=== PATIENT | male | born 1965 | race Caucasian/White ===

== ENCOUNTER 2017-01-17 14:14 | Inpatient (IN) | payer MEDICARE, OTHER ==
[~2017-01-17] VITALS: Ht 172.7 cm; Wt 120.7 kg
[2017-01-17] MEDS ORDERED: Ondansetron 2 mg/mL 2 mL Inj IVPUSH PRN (18:00)
[2017-01-17] MEDS ORDERED: Alum-Mag Hydrox-Simeth 30 mL Suspension PO PRN (18:00)
[2017-01-17] MEDS ORDERED: Lactulose 20 Gm/30 mL 30 mL Syrup PO ONE (18:00)
[2017-01-17 18:15] VITALS: BP 142/89; PULSE 89; RESP 22; O2SAT 97
[2017-01-17] MEDS ORDERED: Vancomycin Dose per Pharmacist XX SCH (18:15)
--- NOTE | 2017-01-17 18:24 | PCM.HPMED ---
Subjective Date of Service January 17, 2017 Primary Provider: Admitting Physician: Leroy Camara MD Primary Care Physician: Nopc[place] Attending Physician: Leroy Camara MD Admit Status: From the Emergency Department, Full Admit, Admit to Red Team Chief Complaint: Transferred from the [facility] for staph bacteremia for possible CAIN History of Present Illness: 51-year-old gentleman with no significant past medical history presented to [facility] on 01/15 due to very high-grade fever, chills and right flank pain. Patient states he started to have intermittent very high-grade fever, temp 104 , on Tuesday. He had low-grade fever on Tuesday. Fever is accompanied by chills. He also has persistent right upper flank pain which also started on Tuesday. He was seen by his PCP on Tuesday afternoon and blood cultures collected. No antibiotics prescribed. He went ED on Tuesday due to worsening symptoms. Blood culture collected at PCPs office growing staph aureus and patient hospitalized. Repeat blood cultures collected in the emergency room also growing staph. Patient was started on Zosyn and vancomycin. Denies urinary complaints. Complains of constipation . Complains of RUQ abdominal pain which started today. He had surgery on bone spur right toe in November. 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 [facility] course: Patient continues to have high-grade fevers temp 104. Continues to have right flank pain and tenderness Initial WBC 4.7, initial lactic acid 1.3, BMP unremarkable, urinalysis 6-10rbcs , influenza A and B-, infectious mononucleosis negative Blood cultures growing Staphylococcus aureus x4 ESr 18, CT scan of abdomen minimal fat stranding at root of mesentery which could represent mesenteric panniculitis. TTE EF 70% no obvious vegetations CXr increased bibasilar consolidation, mildly pneumonia Abdominal ultrasound: Borderline splenomegaly, hypoechoic lesion on left lobe suggestive of hemangioma, no chronic testes, normal kidneys XRfoot mild cortical irregularity, consistent with possible osteomyelitis. There is also some soft tissue swelling of the lateral foot. MRI lumbar spine some marrow edema within the left L5 greater than L4 pedicles. Some degenerative edema versus stress reaction. No finding to suggest a discitis or osteomyelitis ID Dr Haines was contacted by [facility] and patient transferred for more workup and possible CAIN Review of Systems: A comprehensive review of systems performed, pertinent positives and negatives included in history of present illness Allergies Coded Allergies: No Known Allergies (Unverified Allergy, 08/17/13) Home Medications lunesta 2mg prn PMH History of asystole following spinal anesthesia PTSD Surgical History Extensive surgery on right foot following injury while serving in [place]. Hardware in place Reconstructive surgery on face following injury Family History Reviewed and unremarkable Mother has history of lung cancer, hypertension, heart disease Lives with his bernarda who is belt cleaner at [employer] Social History Hx Alcohol Use: No Hx Substance Use: No Hx Tobacco Use: No Smoking Status: Former Smoker Exam Exam Gen. patient is lying comfortably in hospital bed HEENT: Head is normocephalic atraumatic, Pupils equal and reactive, extraocular movements intact, Lungs clear to auscultation bilaterally Heart regular rate and rhythm without murmurs gallops or rubs Abdomen soft nontender without hepatosplenomegaly Extremities pulses are present dorsalis pedis posterior tibialis and radial. tSkin is warm and dry there are no rashes, Psych alert and oriented to person place and time Neuro cranial nerves II through XII are grossly intact Lymph: There is no lymphadenopathy appreciated in the cervical supra infraclavicular regions : no [facility] X-Rays, CTs and MRIs Initial WBC 4.7, initial lactic acid 1.3, BMP unremarkable, urinalysis 6-10rbcs , influenza A and B-, infectious mononucleosis negative Blood cultures growing Staphylococcus aureus x4 ESr 18, CT scan of abdomen minimal fat stranding at root of mesentery which could represent mesenteric panniculitis. TTE EF 70% no obvious vegetations CXr increased bibasilar consolidation, mildly pneumonia Abdominal ultrasound: Borderline splenomegaly, hypoechoic lesion on left lobe suggestive of hemangioma, no chronic testes, normal kidneys XRfoot mild cortical irregularity, consistent with possible osteomyelitis. There is also some soft tissue swelling of the lateral foot. MRI lumbar spine some marrow edema within the left L5 greater than L4 pedicles. Some degenerative edema versus stress reaction. No finding to suggest a discitis or osteomyelitis Assessment & Plan 51-year-old gentleman with no significant past medical history presented to [facility] on 01/15 due to very high-grade fever, chills and right flank pain. # Staphylococcus bacteremia of unclear source,acute,poa -We will send a new set of blood cultures.12/14 positive at [facility] -Continue Zosyn and vancomycin awaiting sensitivity from [facility] -Nothing by mouth past midnight for possible CAIN -Mention of possible cellulitis and osteomyelitis on x-ray of foot but clinically no evidence so far . No tenderness at all -Severe pain and tenderness on right flank but negative on imaging -May need wbc scan if CAIN is negative -ID Dr Haines notified # Severe right flank pain -Unclear etiology, imaging revealing -Dilaudid when necessary # Constipation -bowel regimen Full code ,names his as Bernarda ALDRIDGE [phone] Patient admitted under inpatient status with expected length of stay > 2 midnights for severity of present symptoms, complexities of treatment plan and risk for adverse events Time spent 60 minutes copies to: oMmo Hernandez MD, Melaku MD January 17, 2017 18:24
[2017-01-17 18:56] LABS: BASOPHILS % (AUTO) 0.4 % (0-3); EOSINOPHILS % (AUTO) 1.2 % (0-5); MONOCYTES % (AUTO) 7.5 % (4-12); Mean Corpuscular Hemoglobin 29.1 pg (27.0-35.0); Mean Corpuscular Volume 88.6 fL (81-100); NEUTROPHILS % (AUTO) 79.4 % (40-74); Platelet Count 152 bil/L (150-400)
[2017-01-17] MEDS: 0.9% Sodium Chloride 1,000 ML IV SCH (19:26)
--- NOTE | 2017-01-17 19:36 | NUR ---
Admit to [facility] Pt. arrived on unit via BLS at 1755. He appeared diaphoretic, SOB and weak. Pt. moved to hospital bed from [facility] and MD present in the room at 1805. Vitals stable except for temp of 39.1. Pt. states he does not feel SOB, but is breathing hard due to abdominal discomfort associated with constipation. MD aware and lactulose and tylenol ordered and given. Lab present to draw labs. Pt. looked better after 30 minutes of resting in bed. He says he feels better than he did when he first arrived to the unit. Oriented to call light and falls policy. Night RN to finish admit questions.
[2017-01-17] MEDS ORDERED: Vancomycin Inj 1,750 MG in 0.9% Sodium Chloride 500 ML IV SCH (20:00)
--- NOTE | 2017-01-17 20:20 | PCM.CONPHA ---
Subjective Date of Service: January 17, 2017 Transferred from the [facility] for staph bacteremia for possible CAIN Reason for Pharmacy Consult: Vancomycin Dosing Objective Vital Signs Date Time Temp Pulse Resp B/P Pulse Ox O2 Delivery O2 Flow Rate FiO2 01/17/17 18:15 39.1 89 22 142/89 97 Room Air Weight (Kilograms): 120.700 Height (Feet): 5 Height (Inches): 8.00 Test 01/17/17 18:45 White Blood Count 6.8th/mm3 (3.8-10.1) Red Blood Count 4.37mil/mm3 (4.40-5.80) Hemoglobin 12.7g/dL (13.8-17.2) Hematocrit 38.7% (41.0-50.0) Mean Corpuscular Volume 88.6fL (81-100) Mean Corpuscular Hemoglobin 29.1pg (27.0-35.0) Mean Corpuscular Hemoglobin Concent 32.8% (32.0-37.0) Red Cell Distribution Width 13.5% (12.3-15.4) Platelet Count 152bil/L (150-400) Neutrophils (%) (Auto) 79.4% (40-74) Lymphocytes (%) (Auto) 10.9% (14-46) Monocytes (%) (Auto) 7.5% (4-12) Eosinophils (%) (Auto) 1.2% (0-5) Basophils (%) (Auto) 0.4% (0-3) Hold Nguyen Top Tube Received (Received) Assessment/Plan Assessment/Plan Vancomycin Management A\ Pt transferred from [facility] with Bacteremia of unknown focus of infection. Pt had been getting vancomycin 1gram iv q8h with last dose at 01/17 and zosyn 3.375gram iv q6h Pt Scr 0.74 with GFR= 122 febrile WBC=6.8 Labs pending from [facility]. P\ Start vancomycin 1750mg iv q12h 1st dose 01/17 and trough scheduled for 0730 will monitor Scr and adjust vancomycin accordingly with goal 10-15. Guanaco Cid [facility] January 17, 2017 20:20
[2017-01-17 20:46] VITALS: PULSE 83
[2017-01-17 21:09] LABS: APPEARANCE,URINE CLEAR (CLEAR,HAZY); COLOR,URINE YELLOW (YELLOW); OCCULT BLOOD,URINE LARGE (NEGATIVE)
[2017-01-17 21:45] VITALS: BP 100/63; PULSE 77; RESP 26; O2SAT 94
[2017-01-17] MEDS ORDERED: FLUT9.9S NS (22:07)
[2017-01-17] MEDS ORDERED: ESZO2TAB38 PO (22:07)
[2017-01-17] MEDS: HYDROmorphone 1 mg/mL Inj IVPUSH PRN (23:01)
[2017-01-17] MEDS: Piperacillin-Tazo 3.375 Gm Inj 3.375 GM in Dextrose 5% Minibag Plus 50 ML IV SCH (23:20)
--- NOTE | 2017-01-17 23:32 | CONS ---
[address] [address] CONSULTATION REPORT PATIENT: MARTIN MONTOYA : 1965 MR#: [id number] ADMIT: 01/17/2017 JOB ID: [id number] DATE OF SERVICE: 01/17/2017 REQUESTING PHYSICIAN: I thank Dr. Camara for this consult. REASON FOR CONSULTATION: Sustained Staph aureus bacteremia. 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 He has had some recent surgeries on his left great toe, including a surgery with pins and a plate placed back in November. He was doing well up until one week ago on January 10. On that date he noticed that his left great toe, where he had the surgery 7 or 8 weeks before, had become swollen and tender. This was worrisome but not severe. The next morning, January 11, he noticed that he felt like he had the flu. He had diffuse myalgias, arthralgias, mild headache and just felt tired and lethargic. He did not have fever and chills until the next day, on January 12, when he started to have shaking chills, sweats, fevers, more myalgias, more arthralgias and the development of right flank pain which was quite severe. His right great toe continued to be somewhat bothersome during this time. Over the next couple days, his fevers continued so on January 14, the patient presented to his primary care doctor, who [facility]. The primary care doctor did not prescribe any antibiotics because he did not know whether or not he had a bacterial infection. Within a day or so the patient became too sick really to get along at home because of progressive fevers, chills, headache, photophobia, myalgias, arthralgias, increasingly severe right back pain radiating to his right flank, and profound weakness. Because of this, he went to [facility] in [place] and was admitted. Blood cultures were done there as well on each of his three hospital days, January 15, January 16 and January 17. Earlier today, I was contacted by [facility] hospitalist and asked if I would consider recommending the patient for transfer. She told me that his blood cultures were consistently positive both from the private doctor on Tuesday, as well as blood cultures done Tuesday and Tuesday at [facility] for Staph aureus and they were very concerned that the patient might have endocarditis. They had done a transthoracic echo which did not show endocarditis, but they are not capable of CAIN either. I inquired specifically about MRI scan of the back and was told this was done and did not reveal evidence of vertebral osteo or osteomyelitis. There were also reports that an ultrasound had been done without any focal abnormality or infection. I recommended they go ahead and seek a transfer to this facility so we could proceed with a CAIN. Subsequently this evening, the hospitalist notified me that the patient had arrived and I am now getting to see the patient at almost 10:30 at night. The patient tells me he has been through a lot of tough things in his [employer] career and has had some serious medical issues as well, but this is by far the most painful. He states he has a great deal of pain in his mid thoracic spine area which radiates around to the right flank. He continues to have fevers, chills, headache, photophobia and generalized weakness, but he denies any focal weakness at all in his lower extremities. He notes that even though he has the radicular pain he has absolutely no weakness in his legs, gets up and down out of bed without any difficulty, and has no trouble with his gait. He notices no numbness in his lower extremities. No difficulty urinating or defecating, and has no problem with his balance while standing. He notes that the back pain is not worse than it was when it started, but it is quite intense. PAST MEDICAL HISTORY: 1. History of asystole after spinal anesthesia. 2. PTSD. 3. Extensive foot surgery following an injury in [place] with hardware in place. 4. Reconstructive surgery following facial injury. 5. Additional surgery on the right great toe and forefoot November 2016. SOCIAL HISTORY: The patient is a nondrinker and nonsmoker. He smoked a little bit early in his [employer] career, but not significant. He had extensive worldwide service in the [employer], but retired over 10 years ago, and has only been back to [place] and the [facility] since. FAMILY HISTORY: Negative for tuberculosis in first and second-degree relatives. 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 REVIEW OF SYSTEMS: Was done. The patient states he has had intermittent headaches since onset of this illness a week ago. He has photophobia, but no blurry vision. No sores in the mouth, nor sore throat. No stiff neck. He has had no cough, shortness of breath or chest pain. No nausea, vomiting, diarrhea, dysuria, urinary retention, difficulties with defecation, numbness in the legs or weakness in the legs. Remainder of the review of systems is negative. PHYSICAL EXAMINATION: Reveals a gentleman who is currently afebrile, temperature 37.3, but he was as high as 39.1 just a couple hours ago. Pulse in the 70s, respiratory rate 26, blood pressure 100/63, saturating well on room air. He is a muscular gentleman with some central adiposity as well. He is awake, alert and oriented x3. He does appear to be in pain. Sinuses: Nontender. Eyes without conjunctivitis. Nose: Normal. Oral cavity: No thrush or hairy leukoplakia. Neck: Supple without adenopathy. His lungs are clear posteriorly. Cardiac tones: Regular rate and rhythm without any murmur. Abdomen: Obese, soft and nontender without organomegaly. No ascites is noted. No suprapubic fullness. He does not have a [place]. Of particular importance is examination of his spine, with the patient sitting up I pressed hard on his vertebral bodies posteriorly and there was tenderness at about the mid to lower thoracic area. This seemed worse at about T8, T9, T10 area where there was quite pronounced pain radiated with vigorous palpation of the spinous processes. Psoas sign negative. Lower extremity strength is excellent 5+/5. Lower extremity sensation normal. Deep tendon reflexes are present, including knee jerks and ankle jerks. Patient's gait and station appear normal. No skin rash is noted. LABORATORIES INCLUDE: White count 6800, platelet count 152. Creatinine 0.74, bilirubin 1.3. AST 99, ALT 138, alk phos 154. Procalcitonin 0.7. Urinalysis without white cells. Micro studies have been difficult to track down. With difficulty, I got through to [facility]. I was told by a seed analysis laboratory assistant on duty tonight that there are many positive blood cultures for Staph aureus but none of them have an attached susceptibility. I am not certain where the blood cultures done in the private office on TuesdayJanuary 13 are. There was rumor they may be at [facility], but I am not certain how to access those results at this hour and will try in the morning. I am sure, however, there is Staph aureus in multiple blood cultures. The imaging at [facility] consists of a transthoracic echo which was negative. Additionally, an MRI scan of the back was done which shows various degenerative changes but no diskitis or osteo. Of great concern to me is that the MRI scan of the back was only lumbar and I have confirmed this with the patient, who said that his mid spine was not evaluated. The patient also reports that he had a CT of his toe. The patient also notes that he had a CT of the abdomen and pelvis. It shows no acute abdomen in the abdomen and pelvis, though there was a question about mesenteric panniculitis. I do not see the full report here, but rather just the end of a report. Also noted is a chest x-ray that shows bibasilar potential infiltrate versus atelectasis. IMPRESSION: This is a very worrisome case of a 51-year-old gentleman usually in good health who developed a flu-like illness about a week ago with some pain in a great toe that had been recently operated on with placement of pins and screws. He then developed classic signs of Staph bacteremia with fevers, chills, myalgias and arthralgias with positive blood cultures documented on Tuesday, Tuesday and Tuesday of this week. What concerns me the most is the back pain with radiation to the right side. This could be a manifestation of spinal epidural abscess or some similar process as we have not imaged the thoracic spine. It is incumbent that this diagnosis be evaluated fully and I have ordered MRI scans of the entire spine, which should be done with particular attention to the thoracic spine. Additional concerns here would include endocarditis or an abscess within the liver or elsewhere within the abdomen, though I see no evidence for that on the report of the CT scan from [facility]. RECOMMENDATIONS: 1. Repeat blood cultures today. 2. The patient is on vanc and Zosyn, which is a bit of an odd choice for Staph aureus bacteremia, but I will leave that alone until tomorrow morning when we know if this is methicillin-resistant Staphylococcus aureus or not and then appropriately change antibiotics. 3. Repeat blood cultures are ordered tonight. 4. I spoke to the hospitalist earlier this evening about starting to arrange for a CAIN, which will be required. 5. I left a message with the radiology person concrete pipe maker, but have not been called back. It would not be unreasonable to do the MRI scan of the spine tonight looking for spinal epidural abscess, but I suspect that is going to be difficult to do, and in view of the fact the patient has good strength, sensation and no bowel or bladder problems, we can probably wait until morning, but I have requested through the computer that his MRI be one of the first ones done tomorrow morning when the full crew is back. 6. If spinal epidural abscess is found and is of significant size the patient will need to be moved. Thank you very much for this consult.
[2017-01-18] MEDS: Piperacillin-Tazo 3.375 Gm Inj 3.375 GM in Dextrose 5% Minibag Plus 50 ML IV SCH (00:16)
[2017-01-18 00:22] VITALS: BP 111/74; PULSE 69; RESP 18; O2SAT 92
[2017-01-18 04:49] VITALS: BP 108/68; PULSE 75; RESP 18; O2SAT 93
[2017-01-18] MEDS: HYDROmorphone 1 mg/mL Inj IVPUSH PRN ×4 (04:58→21:13)
--- NOTE | 2017-01-18 05:46 | NUR ---
Fever / Pain Fever resolved during night, pt very diaphoretic. Full linen change. Flank pain controlled with prn Ibuprofen and IV Dilaudid, pt does not find Tylenol helpful for fever or pain. IV fluids and antibiotics infusing, NPO since midnight for procedure. Hourly rounding ongoing.
[2017-01-18] MEDS: 0.9% Sodium Chloride 1,000 ML IV SCH ×3 (06:23→20:01)
--- NOTE | 2017-01-18 09:10 | NUR ---
Social Work- Brief Note Data: EMR reviewed. Pt is a 51 year old male admitted 01/17/17 for staph, bacteremia per H&P. Pt's insurance is [employer]. Pt's PCP is Momo Hernandez MD. GURWINDER met with pt's Jarret Amador, , at bedside regarding discharge plan, SW role explained. Pt was off the floor at MRI at time of assessment. Jarret reported that pt resides in [place] with his where he remains independent at baseline. Pt uses no DME. Pt's states that DPOA has been completed, DPOA is [facility]. SW encouraged pt's to bring a copy of this paperwork to the hospital. Pt likely to discharge home with to transport via POV pending clinical course. SW provided phone number and plan on whiteboard. SW will continue to follow for discharge needs. Assessment: Pt who is independent at base. Plan: Pt is independent at base. Pt likely to discharge home with to transport via POV pending clinical course. SW will continue to follow for discharge needs. Dedra Dietz MSW
[2017-01-18 10:23] VITALS: PULSE 67
[2017-01-18] MEDS: CeFAZolin Inj 2 GM in IV Premix 1 EACH IV SCH ×2 (10:46→17:07)
--- NOTE | 2017-01-18 11:42 | DRSVH ---
PROCEDURE: MRI CERVICAL SPINE WITH AND WITHOUT CONTRAST ([id number]) INDICATIONS: R/O spinal epidural abscess TECHNIQUE: Noncontrast sagittal T1 spin echo and T2 fast spin echo, sagittal STIR, foraminal oblique sagittal T2 fast spin echo, axial gradient echo or T2 fast spin echo through the cervical spine. After the admi nistration of contrast, axial and sagittal T1 spin echo with fat saturation through the cervical spin e. COMPARISON: [facility], MR, MR THORACIC SPINE W&WO CON, 01/18/2017, 9:05. [facility], MR, MR LUMBAR SPINE W&WO CON, 01/18/2017, 9:05. FINDINGS: Image quality: Suboptimal related to motion artifact on several imaging sequences. Spinal Cord: Visualized spinal cord has normal size and signal. No cerebellar tonsillar herniation. The imaged midline intracranial structures are grossly unremarkable. No abnormal cord enhancement is present. Paraspinous Soft Tissues: No paravertebral masses. Prevertebral soft tissues are normal in thicknes s. No definite lymphadenopathy is identified. No enhancing soft tissue masses or lesions are eviden t. Bones: The vertebral body heights and marrow signal are well-maintained. There is no evidence of an acute fracture or dislocation. No suspicious osseous lesions or abnormal osseous enhancement are randell ntified. There is straightening of the normal cervical lordosis. No spondylolisthesis is evident. C2-C3: Mild disc bulge is present at this level without significant facet arthropathy. There is no c entral canal or neural foraminal narrowing. C3-C4: Mild diffuse disc bulge is present with (right greater than left) with bilateral mild to moder ate facet arthropathy (right greater than left). There is no central canal stenosis. However, there is mild right neural foraminal narrowing. No significant left neural foraminal narrowing is evident . C4-C5: There is disc desiccation and mild diffuse disc bulge with mild facet arthropathy. No central canal stenosis is present. However, there is mild to moderate bilateral neural foraminal narrowing. C5-C6: There is diffuse disc bulge, disc desiccation, and mild facet arthropathy. There is no centra l canal stenosis. However, there is mild to moderate right and mild left neural foraminal narrowing. C6-C7: There is diffuse disc bulge, disc desiccation, posterior disc osteophyte complex (record on le ft) and mild facet arthropathy. These findings do not result in central canal or left neural foramin al narrowing. However, there is mild/moderate right neural foraminal narrowing. C7-T1: There is no significant disc bulge or facet arthropathy. No central canal or neural foramina l stenosis is evident. IMPRESSION: 1. No evidence of an epidural abscess or abnormal enhancement of the spinal cord. 2. Mild to moderate degenerative changes of the cervical spine. No disc protrusions or extrusions. 3. Multilevel mild to moderate neural foraminal narrowing of the cervical spine is more prominent on the right. Dictated by: Michael Mello M.D. on 01/18/2017 at 10:29 Approved by: Michael Mello M.D. on 01/18/2017 at 10:41
--- NOTE | 2017-01-18 11:47 | DRSVH ---
PROCEDURE: MRI THORACIC SPINE WITH AND WITHOUT CONTRAST ([id number]) INDICATIONS: R/O spinal epidural abscess TECHNIQUE: Noncontrast sagittal T1 spin echo and T2 fast spin echo, sagittal STIR, axial T1 and T2 fast spin ech o through the thoracic spine. After the administration of contrast, axial and sagittal T1 spin echo with fat saturation through the thoracic spine. COMPARISON: None. FINDINGS: Image quality: Diagnostic. Spinal cord: Imaged portions of the spinal cord are within normal limits. The size and signal of the cord is within normal limits. There is no abnormal cord enhancement. No epidural fluid collections or suspicious epidural enhancement is evident. Paraspinous soft tissues: No paravertebral masses or abnormal enhancement. There may be trace bilat eral pleural effusions. Bones: There is no acute fracture or dislocation involving the osseous structures of the thoracic sp ine. No suspicious osseous lesions are identified. However, there is a focal hemangioma identified involving the T9 posterior vertebral body. There may also be a small hemangioma involving the anteri or margin of the T12 vertebral body. There is mild straightening of the normal thoracic kyphosis. A reas of mild disc desiccation are noted at the levels of T1-T2 and T7-T8. No focal disc bulges are e vident. No central canal or neural foraminal narrowing is present. No disc protrusions or extrusion s. IMPRESSION: 1. No evidence of an epidural abscess or abnormal enhancement of the thoracic cord. 2. Mild degenerative changes of the thoracic spine without central canal or neural foraminal narrowi ng. 3. Small hemangiomas involving the T9 and T12 vertebral bodies. Dictated by: Michael Mello M.D. on 01/18/2017 at 10:41 Approved by: Michael Mello M.D. on 01/18/2017 at 10:45
--- NOTE | 2017-01-18 12:21 | DRSVH ---
PROCEDURE: MRI LUMBAR SPINE WITH AND WITHOUT CONTRAST ([id number]) INDICATIONS: R/O spinal epidural abscess TECHNIQUE: Noncontrast sagittal T1 spin echo and T2 fast spin echo, sagittal STIR, axial T1 and T2 fast spin ech o through the lumbar spine. In cases with scoliosis, additional coronal T2 fast spin echo may be per formed. After the administration of contrast, sagittal and axial T1 spin echo with fat saturation th rough the lumbar spine. COMPARISON: None. FINDINGS: Image quality: Diagnostic. Spinal Cord: The imaged portions of the spinal cord are normal in size and signal. The conus medulla ris is normal in position. No abnormal cord enhancement or epidural enhancement/epidural fluid colle ctions are evident. Paraspinous Soft Tissues: No paravertebral masses. Image soft tissues of the abdomen and pelvis are grossly unremarkable; however, not adequately evaluated on this exam. The abdominal aorta is normal in course and caliber. Bones: The vertebral body heights and marrow signal are within normal limits. There is no acute frac ture or dislocation. No suspicious osseous enhancement is present. Hemangiomas involving the L1 michelle tebral body are noted. There is grade 1 anterolisthesis of L5 on S1 related to bilateral L5 pars def ects, measuring approximately 23 mm. Otherwise, the alignment of the lumbar spine is within normal l imits. L1-L2: There is disc desiccation and mild diffuse disc bulge with early facet arthrosis. However, th ere is no central canal or neural foraminal narrowing. L2-L3: There is disc height loss, mild diffuse disc bulge and mild to moderate facet arthropathy. Th paola findings result in mild central canal stenosis and mild bilateral neural foraminal narrowing. L3-L4: There is disc desiccation and minimal diffuse disc bulge with moderate facet arthropathy. Th ere is no central canal stenosis. However, there is moderate bilateral neural foraminal narrowing. L4-L5: There is disc desiccation and mild diffuse disc bulge with moderate facet arthropathy noted. There is no central canal stenosis. However, there is moderate bilateral neural foraminal narrowing. L5-S1: Again, there is grade one anterolisthesis at this level related to bilateral L5 pars defects. Prominent facet arthropathy at this level is present. There is moderate disc height loss and diffus e disc bulge with disc desiccation. There is no central canal stenosis. However, there is at least mild bilateral neural foraminal narrowing. IMPRESSION: 1. No abnormal enhancement of the cord or nerve roots. No epidural fluid collections or abscesses. 2. Moderate multilevel degenerative changes of the lumbar spine are primarily evident involving the mid to lower lumbar facet joints. 3. No disc protrusions or extrusions. 4. Bilateral L5 pars defects with corresponding grade 1 anterolisthesis of L5 on S1. 5. Central canal stenosis: (L2-L3 (mild). 6. Neural foraminal stenosis: L2-L3 (mild bilateral), L3-L4 (moderate bilateral), L4-L5 (moderate bi lateral), L5-S1 (mild bilateral). Dictated by: Michael Mello M.D. on 01/18/2017 at 11:13 Approved by: Michael Mello M.D. on 01/18/2017 at 11:19
[2017-01-18 13:08] VITALS: BP 115/73; PULSE 73; RESP 16; O2SAT 97
--- NOTE | 2017-01-18 13:13 | PROG NOTE ---
[address] [address] PROGRESS NOTE PATIENT: MARTIN MONTOYA : 1965 MR#: [id number] ADMIT: 01/17/2017 JOB ID: [id number] DATE: 01/18/2017 INFECTIOUS DISEASE FOLLOW UP NOTE: REASON FOR FOLLOWUP: High-grade MSSA bacteremia with right flank pain. INTERVAL HISTORY: This is a complex patient who I evaluated late last night after his transfer from [facility]. 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 Workup there showed MSSA bacteremia for which he was treated appropriately with antibiotics. Unfortunately his blood cultures stay positive Tuesday, Tuesday, Tuesday and yesterday, Tuesday, though the hospitalist at [facility] called me and asked if the patient could be transferred which I then facilitated. One of the reasons for transfer was because they did not have transesophageal echo available to rule out endocarditis. When I saw the patient last night, I was very concerned about the possibility of vertebral osteomyelitis or an epidural abscess as he had quite severe mid thoracic back pain to palpation of his spinous processes and he also had a very severe right flank pain requiring narcotics which he has never had before. I arranged for an MRI scan to be done first thing this morning of his cervical, thoracic and lumbar spine and I have reviewed these films with the radiologist this morning myself in person. This morning the patient tells me he continues to have pain about 4/10 in his right flank which requires Dilaudid. This pain seems to start around the spine and radiate which had aroused my concern about an epidural abscess. He no longer has fevers, chills, sweats, myalgias or arthralgias. He notes his urine is still cloudy and wonders if he might still have red cells in his urine as he did at [facility]. He also notes he has developed a cough and some minimal right pleuritic chest pain. This cough has been productive of scant amounts of brownish sputum. PHYSICAL EXAMINATION: Reveals an afebrile gentleman, temperature 36.7, pulse 67, respiratory rate 18, blood pressure 108/68. He is saturating well on room air. The patient's mental status is normal. Eyes without conjunctivitis. Oral cavity benign. Lungs relatively clear bilaterally. Cardiac tones: Carefully listened to in multiple different positions and all without murmur. Regular rate and rhythm. Abdomen: Soft, nontender. No peripheral stigmata of endocarditis on the hands. No flank tenderness. Lower extremity strength is excellent. No skin rash. LABORATORIES: Include a white count yesterday 6800, creatinine today 0.71, urinalysis still with 11-50 red cells interestingly. Blood cultures from here are negative. This morning I was able to access some of the cultures that were drawn on January 13 which was the original outpatient sets drawn through [facility]. These are positive for MSSA. 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 This was on the heels of another series of reconstructive surgeries on his right great toe and 1st metatarsal, the last surgery on his toe having been about two months ago. The source of his continued MSSA bacteremia remains unclear to me at this point. Today, I carefully examined the MRI scans of the back with radiologist and there was no evidence for any epidural process nor any vertebral osteo. The final report on this is still pending but that is the preliminary report. The next thing to turn our attention to is the heart valves and I have arranged for transesophageal echo to be done tomorrow. It is possible that his microscopic hematuria is on the basis of emboli from endocarditis and likewise perhaps that would explain his flank pain. If the CAIN is negative tomorrow, will need to move on to a CT scan of the chest, abdomen and pelvis. RECOMMENDATIONS: 1. Antibiotics have been switched to Ancef from vanc and Zosyn as we know this is MSSA. 2. The next major study here will be a CAIN even as we await the follow up blood cultures. 3. If any more blood cultures turn positive, we will need to start getting them on a daily basis until they are negative. 4. If the CAIN is negative, will get a CT scan of the chest, abdomen and pelvis with contrast, but we can hold off on that until we see the CAIN I believe. 5. The patient's right toe looks fairly benign to me but if we come to the conclusion of our workup as to the source of the Staph aureus bacteremia without any positive findings. The next test would be to evaluate his right great toe and see whether perhaps there is infected hardware present causing his bacteremia.
[2017-01-18 17:13] VITALS: BP 111/72; PULSE 72; RESP 16; O2SAT 92
--- NOTE | 2017-01-18 18:09 | NUR ---
DAYS 7-7 P-Patient had positive blood cultures and fever at [facility]. I- Blood cultures drawn here and pending, MRI done of spine today (-). Patient to be NPO for CAIN tomorrow to look for endocarditis, approximate time 1330. E- WBC 6.2 with shift, no temperatures today, antibiotics therapy ongoing. Patient awaiting further testing. Right flank pain well controlled with IVP Dilaudid.
[2017-01-18] MEDS: Polyethylene Glycol (PEG) 17 Gm Powder PO PRN (20:00)
[2017-01-18 20:09] VITALS: BP 122/81; PULSE 65; RESP 16; O2SAT 96
--- NOTE | 2017-01-18 20:49 | NUR ---
Sleep P: Pt states he is very sleep deprived and has only gotten a total of 4 hrs of deep sleep in the last week, and states has auditory hallucinations I: Lights are off, soothing music on, avoiding any extra stimuli, will coordinate with primary RN and MUSEUM EDUCATOR to keep noise to a minimum in hallway by room, and doing as much coordinated care as possible to allow pt longer hours for sleep tonight. E: Pt feels those plans can possibly help him get some more rest, and if not he will let the primary RN know. S: Bed locked, and in low position, only upper side rails up, non-skid socks on, call light within reach, and pt instructed if he feels dizzy to not get up without help.
--- NOTE | 2017-01-18 21:09 | PCM.PNMED ---
Subjective Date of Service January 18, 2017 Subjective continues to have fever but better,CAIN postponed for tomorrow Exam Vital Signs Vital Sign - Last Date Time Temp Pulse Resp B/P Pulse Ox O2 Delivery O2 Flow Rate FiO2 01/18/17 20:09 37.0 65 16 122/81 96 Room Air Intake and Output 01/17/17 01/17/17 01/18/17 Cumulative From/Thru 15:00 23:00 07:00 01/17/17 18:08 - 01/18/17 06:48 Intake Total 0 ml 1722 ml 1722 ml Output Total 0 ml 1650 ml 1650 ml Balance 0 ml 72 ml 72 ml Intake Oral 0 ml 350 ml 350 ml IV Total 1372 ml 1372 ml Output Urine Total 0 ml 1650 ml 1650 ml # Voids 0 0 # Bowel Movements 0 0 Exam Gen. patient is lying comfortably in hospital bed HEENT: Head is normocephalic atraumatic, Pupils equal and reactive, extraocular movements intact, Lungs clear to auscultation bilaterally Heart regular rate and rhythm without murmurs gallops or rubs Abdomen soft nontender without hepatosplenomegaly,tenderness on right upper flank Extremities pulses are present dorsalis pedis posterior tibialis and radial. Skin is warm and dry there are no rashes,no tenderness or erythema on foot Psych alert and oriented to person place and time Neuro cranial nerves II through XII are grossly intact Lymph: There is no lymphadenopathy appreciated in the cervical supra infraclavicular regions : no christianson IVs and Medications Medications Reviewed: Medications were reviewed in detail Lab and Diagnostics Result Diagram: 01/17/17 1845 01/18/17 0533 X-Rays, CTs and MRIs Initial WBC 4.7, initial lactic acid 1.3, BMP unremarkable, urinalysis 6-10rbcs , influenza A and B-, infectious mononucleosis negative Blood cultures growing Staphylococcus aureus x4 ESr 18, CT scan of abdomen minimal fat stranding at root of mesentery which could represent mesenteric panniculitis. TTE EF 70% no obvious vegetations CXr increased bibasilar consolidation, mildly pneumonia Abdominal ultrasound: Borderline splenomegaly, hypoechoic lesion on left lobe suggestive of hemangioma, no chronic testes, normal kidneys XRfoot mild cortical irregularity, consistent with possible osteomyelitis. There is also some soft tissue swelling of the lateral foot. MRI lumbar spine some marrow edema within the left L5 greater than L4 pedicles. Some degenerative edema versus stress reaction. No finding to suggest a discitis or osteomyelitis Assessment & Plan 51-year-old gentleman with no significant past medical history presented to [facility] on 01/15 due to very high-grade fever, chills and right flank pain. # MSSA bacteremia of unclear source,acute,poa -new set of blood cultures pending .12/[address] [facility] and reportedly growing MSSA initially treated with Zosyn and vancomycin ,switched to Ancef -Nothing by mouth past midnight for possible CAIN -Mention of possible cellulitis and osteomyelitis on x-ray of foot but clinically no evidence so far . No tenderness at all -Severe pain and tenderness on right flank but negative on imaging.MRI of spine negative -May need wbc scan and CT abd/pelvis/chest if CAIN is negative -ID Dr Haines on board # Severe right flank pain -Unclear etiology, imaging unrevealing -Dilaudid when necessary # Constipation -bowel regimen Full code ,names his as Bernarda ALDRIDGE [phone] Patient admitted under inpatient status with expected length of stay > 2 midnights for severity of present symptoms, complexities of treatment plan and risk for adverse events disposition:pending hospital course Leroy Camara MD January 18, 2017 21:09
--- NOTE | 2017-01-18 23:42 | NUR ---
Positive blood culture Positive blood cultures reported at 2004, and again at 0, MD made aware, expected results.
[2017-01-19] VITALS (9 sets, daily range): BP systolic 112–148; BP diastolic 73–103; PULSE 60–78; RESP 16–33; O2SAT 94–99
[2017-01-19] MEDS: CeFAZolin Inj 2 GM in IV Premix 1 EACH IV SCH ×3 (00:23→17:49)
[2017-01-19] MEDS: HYDROmorphone 1 mg/mL Inj IVPUSH PRN ×4 (02:19→22:00)
--- NOTE | 2017-01-19 04:38 | NUR ---
Tightness in chest Patient began to cough aggressively and c/o tightness of chest. Requested asthma inhaler and neb treatments. refused O2 NC, no noted wheezing, discoloration. Lungs clear but short shallow breaths. Night hospitalist notified, respiratory therapy assessed and confirmed absence of wheeze. Patient refused nc again and stated that symptoms have improved. Will continue to monitor.
[2017-01-19] MEDS: 0.9% Sodium Chloride 1,000 ML IV SCH ×3 (06:17→22:00)
[2017-01-19] MEDS ORDERED: Vancomycin Serum Trough XX ONE (07:30)
--- NOTE | 2017-01-19 09:13 | DRSVH ---
PROCEDURE: X-RAY CHEST ONE VIEW, PORTABLE ([id number]) INDICATIONS: SHORT OF BREATH TECHNIQUE: One view of the chest was acquired. COMPARISON: None. FINDINGS: Surgical changes and devices: None. Lungs and pleura: No pleural effusions or pneumothorax. Bibasilar air space opacities. Mediastinum: Mediastinal contours appear normal. Heart size is normal. Bones and chest wall: No suspicious bony lesions. Overlying soft tissues appear unremarkable. IMPRESSION: Bibasilar atelectasis versus aspiration or pneumonia. Correlate clinically. Dictated by: Abhijit BUNN Interpreted: Keiry Marquez MD on 01/19/2017 at 9:12 Transcribed by: JAKE on 01/19/2017 at 9:13 Approved by: Keiry Marquez M.D. on 01/19/2017 at 17:42
[2017-01-19 09:49] LABS: BASOPHILS % (AUTO) 0.6 % (0-3); EOSINOPHILS % (AUTO) 5.3 % (0-5); MONOCYTES % (AUTO) 12.6 % (4-12); Mean Corpuscular Hemoglobin 29.7 pg (27.0-35.0); Mean Corpuscular Volume 88.8 fL (81-100); NEUTROPHILS % (AUTO) 50.2 % (40-74); Platelet Count 206 bil/L (150-400)
[2017-01-19 09:59] LABS: Magnesium 2.2 mg/dL (1.6-2.6)
--- NOTE | 2017-01-19 10:44 | PROG NOTE ---
[address] [address] PROGRESS NOTE PATIENT: MARTIN MONTOYA : 1965 MR#: [id number] ADMIT: 01/17/2017 JOB ID: [id number] DATE: 01/19/2017 INFECTIOUS DISEASE FOLLOWUP NOTE: REASON FOR FOLLOWUP: High-grade MSSA sustained bacteremia of unknown source. INTERVAL HISTORY: The patient continues to have right flank pain, which is about 2/10 at this point. He had a fever spike last night but no chills. In general, he is feeling a bit better than prior to the initiation of antibiotics over the weekend but continues to feel ill with respect to his fever, generalized malaise and right flank pain. No sore throat is noted. No headache. No significant cough or chest pain. No nausea, vomiting, or diarrhea. No dysuria. He does not have any pain in his right great toe, which has had a lot of hardware placed including some surgery back in November. PHYSICAL EXAMINATION: Reveals an afebrile gentleman. Temp 37.7 last night and currently 36.6. Pulse 64, respiratory rate 16, blood pressure 116/77. He is saturating well on room air and comfortable. Examination of the head is unremarkable. Oropharynx does have a few erythematous lesions on the posterior palate which are nontender and could represent palatal petechia. No thrush is noted. No conjunctival abnormalities. His lungs are clear. His cardiac tones regular rate and rhythm without any murmur. Abdomen is soft and nontender. There is some minimal right flank tenderness. The toes are without evidence of infection as noted previously. LABORATORIES: Include a white count 7000 today. Basically normal diff at this point. Creatinine 0.72. ALT is 108 and slowly dropping. Alk phos 154 and stable. Procalcitonin 0.7. Micro studies include positive blood cultures now from January 17. Recall that his original outpatient blood cultures done on January 13 in [place] were positive for MSSA, and I must presume this is the same organism. A chest x-ray done today, bibasilar atelectasis. The MRI scans of the spine done yesterday did not show any evidence of spinal epidural abscess. IMPRESSION: This patient now has been bacteremic for at least four days with the organism which we believe to be an methicillin-sensitive Staphylococcus aureus. We initially started with MRIs of the back to exclude the possibility of an epidural abscess or vertebral osteomyelitis. Today, we hope to accomplish a transesophageal echo to exclude endocarditis. A CT scan of the chest, abdomen and pelvis would be the next thing on the order of business to exclude the possibility of abscess, empyema, or other process. I do note, however, that the patient did have a CT of the abdomen and pelvis while he was at [facility] over the weekend which did not find any source for his infection, so I am a little perplexed as to why he still has right flank pain without evidence of infection or abnormality on the CT done just days ago at an outside hospital. RECOMMENDATIONS: 1. Will continue with cefazolin 2 g q.8 h. 2. Repeat blood cultures today. 3. Transesophageal echo today. 4. CT scan of the chest, abdomen and pelvis with oral and IV contrast would be next on our list of studies, and this might be reasonably done tomorrow. 5. In view of his elevated LFT, an ultrasound of the right upper quadrant would also make sense and given that the patient is fasting, this could be an excellent opportunity to get that done.
[2017-01-19] MEDS ORDERED: fentaNYL-PF 50 mCg/mL 2 mL Inj ONE (11:29)
[2017-01-19] MEDS ORDERED: Propofol 10,000 mCg/mL 20 mL Inj ONE (11:29)
[2017-01-19] MEDS ORDERED: 0.9% Sodium Chloride 1,000 ML IV ONE (14:05)
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
--- NOTE | 2017-01-19 14:06 | PCM.ANEP1 ---
Post Anesthesia Phase 1 PACU Phase 1 Assessment Date of Service: January 19, 2017 (1200) Vital Signs Vital Signs Date Time Temp Pulse Resp B/P Pulse Ox O2 Delivery O2 Flow Rate FiO2 01/19/17 14:00 68 33 135/103 96 Room Air 01/19/17 13:55 71 30 112/75 96 Room Air 01/19/17 12:51 37.3 69 22 144/88 94 Room Air Anesthetic Administered: MAC Level of Alertness: Awake, talking YAP's with Equal Strength: Yes Pain: No Pain Scale Score: 4 Nausea or Vomiting: No Cardiovascular Function and Hy: No Oxygen Delivery: Room Air Lungs: Clear to Auscultation, Normal Air Movement Dermatome Level: Full Sensation Complications: No Kwame Fulton MD January 19, 2017 14:06
--- NOTE | 2017-01-19 15:18 | NUR ---
anxiety pt appears to be having quite a bit of anxiety, especially regarding procedures, he just returned from [facility] and seems a lot calmer, results were good, he is now having abdominal US. Denies chest pain, but having intermittent right flank/back pain. Dilaudid and IB helping some
--- NOTE | 2017-01-19 15:26 | DRSVH ---
[facility] [address] [place] [address] Echocardiogram Report Name: MARTIN MONTOYA Study Date: 01/19/2017 Hospital Exam Location: [facility] Gender: Male : 1965 Age: 51 yrs BP: 146/ 90 mmHg Reason For Study: BACTEREMIA Ordering Physician: [facility]PITAL[facility] Performed By: Desiree Stevens Referring Physician: Dr. Momo Hernandez Interpretation Summary The left ventricle is normal in size, wall thickness, and systolic function without any focal wall motion abnormalities. The ejection fraction is estimated to be 55-60%. The right ventricle is normal in size and function. There is no significant valvular heart disease. No evidence for endocarditis. Procedure: Informed consent for Transesophageal Echocardiogram, and use of a contrast agent as needed, was obtained prior to the procedure. The patient was brought to the [facility] in a fasting state. An intravenous line was placed. A topical anesthetic agent was used for oropharangeal anesthesia. A bite block was inserted. Sedation was managed by anesthesiologist; see anesthesiology notes for details. The transesophageal probe was passed without difficulty. The usual views were obtained; basal, mid-esophageal, transgastric and aortic views. The patient's vital signs, including blood pressure, heart rate, pulse oximetry and cardiac rhythm were monitored throughout the procedure and remained stable. A 2D transesophageal echocardiogram with spectral and color flow Doppler was performed. The patient tolerated the procedure well without evidence of orophangeal or esophageal trauma. The patient was in normal sinus rhythm during the exam. There were no complications. Left Ventricle: The left ventricle is normal in size, wall thickness, and systolic function without any focal wall motion abnormalities. The ejection fraction is estimated to be 55-60%. Right Ventricle: The right ventricle is normal in size and function. Atria: There is no Doppler evidence for an interatrial shunt. Mitral Valve: The mitral valve is normal in structure and function. There is no vegetation seen on the mitral valve. There is trace mitral regurgitation. Aortic Valve: The aortic valve is normal in structure and function. There is no aortic valvular vegetation. No aortic regurgitation is present. Tricuspid Valve: The tricuspid valve is normal in structure and function. There is no tricuspid valve vegetation. Pulmonic Valve: The pulmonic valve is not well seen, but is grossly normal. There is no vegetation on the pulmonic valve. There is no significant valvular heart disease. Great Vessels: The aortic root is normal size. The ascending aorta is normal in size. The pulmonary artery is normal size. Pericardium/ Pleura: There is no pericardial effusion. Reading Physician:KATHRINE
--- NOTE | 2017-01-19 15:55 | DRSVH ---
PROCEDURE: US ABDOMEN INDICATIONS: staph bacteremia, RUQ pain TECHNIQUE: Real-time scanning was performed of the abdominal and retroperitoneal organs, with image documentatio n. COMPARISON: None. FINDINGS: Liver length: 19.22 cm Gallbladder Wall Thickness: 2.20 mm CHD: 4 mm CBD: 5.80 mm Spleen length: 14.53 cm Right kidney length: 11.20 cm Left kidney length: 14.24 cm Aorta(Proximal): 2.49 cm Aorta(Mid): 2.13 cm Aorta(Distal): 2.02 cm RCIA: 1.46 cm LCIA: 1.22 cm Liver: Liver is normal in size and homogeneous in echotexture. Gallbladder: The gallbladder is unremarkable. Biliary ducts: Intrahepatic bile ducts are non-dilated. Extrahepatic bile duct caliber is normal. Normal is 6-7 mm or less in diameter, or 10 mm or less post-cholecystectomy. Pancreas: Visualized portions of the pancreas are sonographically normal. Spleen: Spleen is normal in size and homogeneous in echotexture. Kidneys: Kidneys are normal in size and echotexture. No hydronephrosis or nephrolithiasis. No luca d masses. Aorta: Visualized aorta is normal in caliber at less than 3 cm. Iliacs: Proximal common iliac arteries are normal in caliber at less than 2.5 cm. IVC: Intrahepatic inferior vena cava is patent. Miscellaneous: No free abdominal fluid. IMPRESSION: Normal exam. Dictated by: Abhijit BUNN Interpreted: Keiry Marquez MD on 01/19/2017 at 15:54 Transcribed by: JAKE on 01/19/2017 at 15:55 Approved by: Keiry Marquez M.D. on 01/19/2017 at 17:57
[2017-01-19] MEDS: Sodium Chloride LOK Flush 10 mL Syringe IVFLUSH SCH (17:05)
--- NOTE | 2017-01-19 18:09 | PCM.PNMED ---
Subjective Date of Service January 19, 2017 Subjective Continues to have fever but improving. CAIN negative for endocarditis. Blood cultures continues to be positive. Exam Vital Signs Vital Sign - Last Date Time Temp Pulse Resp B/P Pulse Ox O2 Delivery O2 Flow Rate FiO2 01/19/17 14:46 36.7 66 17 129/81 94 Room Air Intake and Output 01/18/17 01/18/17 01/19/17 Cumulative From/Thru 14:59 22:59 06:59 01/17/17 18:08 - 01/19/17 06:33 Intake Total 1414 ml 1247 ml 4383 ml Output Total 725 ml 2375 ml Balance 689 ml 1247 ml 2008 ml Intake Oral 500 ml 850 ml IV Total 914 ml 1247 ml 3533 ml Output Urine Total 725 ml 2375 ml # Voids 0 # Bowel Movements 0 0 Exam Gen. patient is lying comfortably in hospital bed HEENT: Head is normocephalic atraumatic, Pupils equal and reactive, extraocular movements intact, Lungs clear to auscultation bilaterally Heart regular rate and rhythm without murmurs gallops or rubs Abdomen soft nontender without hepatosplenomegaly,tenderness on right upper flank Extremities pulses are present dorsalis pedis posterior tibialis and radial. Skin is warm and dry there are no rashes,no tenderness or erythema on foot Psych alert and oriented to person place and time Neuro cranial nerves II through XII are grossly intact Lymph: There is no lymphadenopathy appreciated in the cervical supra infraclavicular regions : no christianson IVs and Medications Medications Reviewed: Medications were reviewed in detail Lab and Diagnostics Result Diagram: 01/19/17 0740 01/19/17 0740 X-Rays, CTs and MRIs Initial WBC 4.7, initial lactic acid 1.3, BMP unremarkable, urinalysis 6-10rbcs , influenza A and B-, infectious mononucleosis negative Blood cultures growing Staphylococcus aureus x4 ESr 18, CT scan of abdomen minimal fat stranding at root of mesentery which could represent mesenteric panniculitis. TTE EF 70% no obvious vegetations CXr increased bibasilar consolidation, mildly pneumonia Abdominal ultrasound: Borderline splenomegaly, hypoechoic lesion on left lobe suggestive of hemangioma, no chronic testes, normal kidneys XRfoot mild cortical irregularity, consistent with possible osteomyelitis. There is also some soft tissue swelling of the lateral foot. MRI lumbar spine some marrow edema within the left L5 greater than L4 pedicles. Some degenerative edema versus stress reaction. No finding to suggest a discitis or osteomyelitis Assessment & Plan 51-year-old gentleman with no significant past medical history presented to [facility] on 01/15 due to very high-grade fever, chills and right flank pain. # MSSA bacteremia of unclear source,acute,poa -new set of blood cultures sent on admission growing staph .4/[address] [facility] and reportedly growing MSSA initially treated with Zosyn and vancomycin ,switched to Ancef 01/18 - CAIN negative for endocarditis. Ultrasound of ultrasound pending. -Mention of possible cellulitis and osteomyelitis on x-ray of foot but clinically no evidence so far . No tenderness at all -Severe pain and tenderness on right flank but negative on imaging.MRI of spine negative -May need wbc scan and CT abd/pelvis/chest if US is negative -ID Dr Haines on board # Severe right flank pain -Unclear etiology, imaging unrevealing -Dilaudid when necessary # Constipation -bowel regimen Full code ,names his as Bernarda ALDRIDGE [phone] Patient admitted under inpatient status with expected length of stay > 2 midnights for severity of present symptoms, complexities of treatment plan and risk for adverse events disposition:pending hospital course Leroy Camara MD January 19, 2017 18:09
[2017-01-20] MEDS: Sodium Chloride LOK Flush 10 mL Syringe IVFLUSH SCH ×3 (00:30→17:14)
[2017-01-20] MEDS: CeFAZolin Inj 2 GM in IV Premix 1 EACH IV SCH ×3 (02:00→17:14)
[2017-01-20] MEDS: HYDROmorphone 1 mg/mL Inj IVPUSH PRN ×2 (02:27→21:12)
[2017-01-20 05:30] VITALS: BP 137/88; PULSE 65; RESP 16; O2SAT 95
--- NOTE | 2017-01-20 06:13 | NUR ---
pain/sleep pt has reported pain in his R flank 5/10 in pain. IV dilaudid was able to make him comfortable. pt stated he was able to sleep more last night then he has been able to recently. this Am he does say that over all he feels poorly. VSS and afebrile. pt asked to take a shower and [employer] has set pt up with shower supplies and covered IV site. also pt went to a chest/abdomen/pelvic CT last night and has been anxious for the results. care continues.
--- NOTE | 2017-01-20 09:53 | DRSVH ---
PROCEDURE: CT CHEST, ABDOMEN AND PELVIS [facility] CONTRAST ([id number]) INDICATIONS: hi grade staph bacteremia and R flank pain TECHNIQUE: After the administration of oral and intravenous contrast, 5 mm thick sections acquired from the lung apices to the symphysis. 5 mm coronal and sagittal reformats were performed, with additional 7 mm c oronal MIP reformats through the lungs. For radiation dose reduction, the following was used: autom ated exposure control, adjustment of mA and/or kV according to patient size. COMPARISON: Abdomen ultrasound 01/19/2017 FINDINGS: Image quality: Excellent. CHEST: Lungs and pleura: No acute airspace opacities. No pleural effusions or pneumothorax. Central and p eripheral airways appear patent and normal in caliber. Mediastinum: Heart size is normal. No pericardial effusion. No mediastinal or hilar adenopathy by size criteria., Pretracheal nodes measuring 7-10 mm in short diameter. Thoracic aorta and central pu lmonary arteries are normal in size. Esophagus is normal in caliber. No hiatal hernia. Chest wall: No axillary or supraclavicular adenopathy by size criteria. Thyroid gland appears zoltan l. ABDOMEN: Solid organs: Liver and spleen are normal in size and enhancement. Gallbladder appears normal. Elio iary system is non dilated. Pancreas enhances normally. No adrenal nodules. Kidneys demonstrate no rmal size and enhancement, without hydronephrosis. Peritoneum and bowel: Bowel loops demonstrate normal wall thickness and caliber. No free fluid or a ir. Appendix is not seen, no pericecal inflammation present. Nodes and vessels: No retroperitoneal or mesenteric adenopathy by size criteria. Aorta and inferior vena cava are normal in size. Miscellaneous: No ventral hernias. A small amount of subcutaneous air is present in the abdominal wa ll superior and left of the umbilicus. PELVIS: Genitourinary: Bladder wall thickness is normal. Prostate and seminal vesicles appear normal. Miscellaneous: No inguinal hernias or adenopathy. Bones: No suspicious bony lesions. No vertebral body compression fractures. IMPRESSION: 1. No acute findings in the chest, abdomen or pelvis to explain bacteremia and right flank pain. No k idney stones or evidence of appendicitis. 2. Left supraumbilical bowel wall air is likely an injection site but correlation needed. Dictated by: Ian Flores M.D. on 01/20/2017 at 9:42 Approved by: Ian Flores M.D. on 01/20/2017 at 9:51
[2017-01-20] MEDS: 0.9% Sodium Chloride 1,000 ML IV SCH ×3 (10:56→21:12)
--- NOTE | 2017-01-20 13:30 | PROG NOTE ---
[address] [address] PROGRESS NOTE PATIENT: MARTIN MONTOYA : 1965 MR#: [id number] ADMIT: 01/17/2017 JOB ID: [id number] DATE: 01/20/2017 INFECTIOUS DISEASE FOLLOW UP NOTE: REASON FOR FOLLOWUP: High-grade MSSA sustained bacteremia of unknown focus. INTERVAL HISTORY: Overnight, the patient reports his right flank/back pain has started to gradually diminished but is still present. He has had no additional fevers, chills or sweats. He has no headache, sore throat, significant cough, chest pain or GI symptoms. He has no particular pain in his right great toe which has been operated on many times and most recently in November of this year. PHYSICAL EXAMINATION: Reveals a comfortable gentleman who looks better each day. Temperature 36.9, pulse 65, respiratory rate 16, blood pressure 137/88. He is saturating well on room air. Examination of mental status reveals it to be clear. Eyes without conjunctivitis. Lungs clear. Cardiac tones without murmur. Abdomen: Quite benign. The patient does not have a Hudson catheter. Extremities without edema. No evidence for cellulitis. His right great toe was again carefully examined and is basically nontender, non erythematous. LABORATORIES: Include a white count of 7000 yesterday, not repeated today. Today, we do have a creatinine 0.65. Urinalysis without white cells. Blood cultures from the 8th are now final and it is an MSSA which is very sensitive to all standard agents. The follow up blood cultures from yesterday morning are negative at slightly more than 24 hours only. IMAGING: Is extensive and continues to pile up. An abdominal ultrasound was read as a completely normal examination. This was a complete abdominal ultrasound and it was normal. We then proceeded to get a CT scan of the chest, abdomen and pelvis. There were no significant findings on any of these studies though a tiny amount of subcutaneous air was seen in the abdominal wall on the left side of the umbilicus which does not correspond to any physical finding nor any injection site. Recall that our chest x-ray and MRI scans of the spine were also negative. 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 He was seen as an outpatient and had positive blood cultures and was then admitted to the [facility] where a wide variety of diagnostic studies including a normal abdomen and pelvis CT scan were obtained. Multiple blood cultures over a four-day period grew MSSA and he was transferred to this facility for additional workup now some three days ago. As part of his workup, we looked hard for epidural abscess because of his back pain and that was negative. We then got the CAIN which was negative and now a chest x-ray, abdominal ultrasound and chest, abdomen and pelvis CT scan, all of which were negative. He did have recent surgery on his right great toe and I suppose it is conceivable that that represents the source of this very high-grade bacteremia but it seems unlikely given the appearance of this toe and the severity of the bacteremia. RECOMMENDATIONS: 1. Will continue with cefazolin. 2. Repeat blood cultures will be done today. 3. An x-ray of the right forefoot has been ordered. 4. I would consult one of the podiatrists to come and look at his right great toe and see if they think there is any way it could be the source of this staph infection and if they think any additional imaging or aspirate should be done of the right great toe or the right forefoot in general. 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 5. Will continue to closely follow this patient with you. Note that he should not receive a PICC until we are absolutely certain all of his blood cultures are consistently negative.
[2017-01-20 13:44] VITALS: BP 133/86; PULSE 57; RESP 16; O2SAT 97
--- NOTE | 2017-01-20 14:04 | DRSVH ---
PROCEDURE: X-RAY TOESS, TWO VIEWS INDICATIONS: staph sepsis after foot hardware TECHNIQUE: 3 views of the first toe(s) acquired. COMPARISON: [facility] [place], CR, XR TOE(S) 2VW RT, 07/13/2016, 8:07. FINDINGS: Bones: 2 surgical fixation screws are present fusing the first interphalangeal joint. Fixation hardw are also involves the first metatarsal bone likely related to prior osteotomy and the fixation plate and multiple associated fixation screws are in expected unchanged position. Prior osteotomy of the s econd metatarsal head with single surgical screw also present in expected position. No advanced oste omyelitis is seen. Soft tissues: No suspicious soft tissue densities. IMPRESSION: 1. Postsurgical changes as above. 2. Although no bony erosions are identified, plain film radiography is relatively insensitive in the acute phases of osteomyelitis and may not demonstrate radiographic changes for 15 days. If acute ost eomyelitis is of clinical concern, nuclear medicine regional bone scan or MRI is recommended. Dictated by: Abhijit BUNN Interpreted: Dennis Flores MD on 01/20/2017 at 13:49 Transcribed by: PATEL on 01/20/2017 at 14:03 Approved by: Ian lFores M.D. on 01/20/2017 at 16:07
--- NOTE | 2017-01-20 14:40 | NUR ---
Social Work- Continued D/C Planning Data: EMR reviewed. Pt is on day 3 of hospitalization for staph, bacteremia for CAIN per H&P. ID is following pt. Podiatry is consulting. Pt is not medically stable for discharge, pt will require negative blood cultures prior to discharge. Pt will need IV abx at discharge. SW met with pt and at bedside regarding home infusion choice, CHOICE LIST PROVIDED. Pt's first choice is [facility], Second is [facility]. GURWINDER spoke with Maribel, liaison with [facility], regarding referral, access provided. Maribel will run pt's insurance and determine out of pocket costs. SW to update pt and when out of pocket costs are known. All updated and agreeable to plan. Assessment: Pt who will need IV abx at discharge Data: Referral made to [facility] to determine pt's out of pocket costs for infusion. SW to update pt and when out of pocket costs are known. Pt to discharge home with IV abx through [facility] and to transport via POV. SW will continue to follow. ETTA Denise
--- NOTE | 2017-01-20 16:40 | NUR ---
Pain right side pain is much better compared to yesterday. pt appears much more comfortable. He has switched from IV Dilaudid to PO pain meds (Tylenol and Ibuprofen) and is rating his pain 2-4/10. Up walking more, out in hallway some
--- NOTE | 2017-01-20 19:26 | PCM.PNMED ---
Subjective Date of Service January 20, 2017 Subjective fever improving,blood culture negative now,source of infection remains unknown after extensive workup.patient feeling better overall Exam Vital Signs Vital Sign - Last Date Time Temp Pulse Resp B/P Pulse Ox O2 Delivery O2 Flow Rate FiO2 01/20/17 13:44 36.7 57 16 133/86 97 Room Air Intake and Output 01/19/17 01/19/17 01/20/17 Cumulative From/Thru 15:00 23:00 07:00 01/17/17 18:08 - 01/20/17 06:53 Intake Total 0 ml 800 ml 1626 ml 6809 ml Output Total 1125 ml 900 ml 2150 ml 6550 ml Balance -1125 ml -100 ml -524 ml 259 ml Intake Oral 0 ml 800 ml 400 ml 2050 ml IV Total 1226 ml 4759 ml Output Urine Total 1125 ml 900 ml 2150 ml 6550 ml # Voids 0 # Bowel Movements 0 0 0 Exam Gen. patient is lying comfortably in hospital bed HEENT: Head is normocephalic atraumatic, Pupils equal and reactive, extraocular movements intact, Lungs clear to auscultation bilaterally Heart regular rate and rhythm without murmurs gallops or rubs Abdomen soft nontender without hepatosplenomegaly,tenderness on right upper flank Extremities pulses are present dorsalis pedis posterior tibialis and radial. Skin is warm and dry there are no rashes,no tenderness or erythema on foot Psych alert and oriented to person place and time Neuro cranial nerves II through XII are grossly intact Lymph: There is no lymphadenopathy appreciated in the cervical supra infraclavicular regions : no christianson IVs and Medications Medications Reviewed: Medications were reviewed in detail Lab and Diagnostics Result Diagram: 01/19/17 0740 01/20/17 0555 X-Rays, CTs and MRIs Initial WBC 4.7, initial lactic acid 1.3, BMP unremarkable, urinalysis 6-10rbcs , influenza A and B-, infectious mononucleosis negative Blood cultures growing Staphylococcus aureus x4 ESr 18, CT scan of abdomen minimal fat stranding at root of mesentery which could represent mesenteric panniculitis. TTE EF 70% no obvious vegetations CXr increased bibasilar consolidation, mildly pneumonia Abdominal ultrasound: Borderline splenomegaly, hypoechoic lesion on left lobe suggestive of hemangioma, no chronic testes, normal kidneys XRfoot mild cortical irregularity, consistent with possible osteomyelitis. There is also some soft tissue swelling of the lateral foot. MRI lumbar spine some marrow edema within the left L5 greater than L4 pedicles. Some degenerative edema versus stress reaction. No finding to suggest a discitis or osteomyelitis PROCEDURE: X-RAY TOESS, TWO VIEWS INDICATIONS: staph sepsis after foot hardware IMPRESSION: 1. Postsurgical changes as above. 2. Although no bony erosions are identified, plain film radiography is relatively insensitive in the acute phases of osteomyelitis and may not demonstrate radiographic changes for 15 days. If acute osteomyelitis is of clinical concern, nuclear medicine regional bone scan or MRI is recommended. Dictated by: Abhijit Long [facility] Interpreted: Dennis Flores MD on 01/20/2017 at 13: 49 PROCEDURE: CT CHEST, ABDOMEN AND PELVIS WTIH CONTRAST ([id number]) INDICATIONS: hi grade staph bacteremia and R flank pain IMPRESSION: 1. No acute findings in the chest, abdomen or pelvis to explain bacteremia and right flank pain. No kidney stones or evidence of appendicitis. 2. Left supraumbilical bowel wall air is likely an injection site but correlation needed. Dictated by: Ian Flores M.D. on 01/20/2017 at 9:42 PROCEDURE: MRI LUMBAR SPINE WITH AND WITHOUT CONTRAST ([id number]) INDICATIONS: R/O spinal epidural absces IMPRESSION: 1. No abnormal enhancement of the cord or nerve roots. No epidural fluid collections or abscesses. 2. Moderate multilevel degenerative changes of the lumbar spine are primarily evident involving the mid to lower lumbar facet joints. 3. No disc protrusions or extrusions. 4. Bilateral L5 pars defects with corresponding grade 1 anterolisthesis of L5 on S1. 5. Central canal stenosis: (L2-L3 (mild). 6. Neural foraminal stenosis: L2-L3 (mild bilateral), L3-L4 (moderate bilateral ), L4-L5 (moderate bilateral), L5-S1 (mild bilateral). Dictated by: Michael Mello M.D. on 01/18/2017 at 11:13 Cardiac Echo Impressions CAIN Interpretation Summary The left ventricle is normal in size, wall thickness, and systolic function without any focal wall motion abnormalities. The ejection fraction is estimated to be 55-60%. The right ventricle is normal in size and function. There is no significant valvular heart disease. No evidence for endocarditis. Assessment & Plan 51-year-old gentleman with no significant past medical history presented to [facility] on 01/15 due to very high-grade fever, chills and right flank pain. # MSSA bacteremia of unclear source,acute,poa -blood cultures sent on 01/14,01/15 and 01/17 growing MSSA,blood cx sent 01/19 NGTD initially treated with Zosyn and vancomycin ,switched to Ancef 01/18 - CAIN negative for endocarditis. Ultrasound of abdomen unrevealing -Mention of possible cellulitis and osteomyelitis on x-ray of foot done at [facility] but clinically no evidence so far . No tenderness at all .no source of infection identified after extensive workup .will consult podiatry for evaluation of foot given initial XR at [facility] -Severe pain and tenderness on right flank but negative on imaging.MRI of spine negative -ID Dr Haines on board # Severe right flank pain -Unclear etiology, imaging unrevealing -Dilaudid when necessary # Constipation -bowel regimen Full code ,names his as Bernarda ALDRIDGE [phone] Patient admitted under inpatient status with expected length of stay > 2 midnights for severity of present symptoms, complexities of treatment plan and risk for adverse events disposition:pending hospital course Leroy Camara MD January 20, 2017 19:26
[2017-01-20 19:44] VITALS: BP 128/82; PULSE 56; RESP 16; O2SAT 98
[2017-01-21] MEDS: Sodium Chloride LOK Flush 10 mL Syringe IVFLUSH SCH ×3 (00:30→16:30)
[2017-01-21] MEDS: CeFAZolin Inj 2 GM in IV Premix 1 EACH IV SCH ×3 (01:32→13:41)
[2017-01-21 05:23] VITALS: BP 132/81; PULSE 62; RESP 18; O2SAT 97
--- NOTE | 2017-01-21 05:45 | NUR ---
pain pt reports his pain has improved. he is preferring to take PO tylenol and ibuprofen for pain over the dilaudid. he did get one dose of 1mg IV dilaudid at bedtime. pt has walked the halls before bed and thought he had over done it a little and so he requested the IV dilaudid. he has slept for most of the night appearing comfortable. care continues.
[2017-01-21 08:22] LABS: Mean Corpuscular Hemoglobin 29.5 pg (27.0-35.0); Mean Corpuscular Volume 87.7 fL (81-100)
[2017-01-21] MEDS: 0.9% Sodium Chloride 1,000 ML IV SCH ×2 (08:30→23:41)
[2017-01-21 08:42] LABS: INR 0.93 ratio
[2017-01-21 09:05] LABS: BASOPHILS % (AUTO) 2 % (0-3); EOSINOPHILS % (AUTO) 3 % (0-5); MONOCYTES % (AUTO) 11 % (4-12); NEUTROPHILS % (AUTO) 46 % (40-74)
[2017-01-21 10:27] VITALS: BP 134/83; PULSE 57; RESP 17; O2SAT 98
--- NOTE | 2017-01-21 10:52 | NUR ---
Social Work- Readiness for Discharge Data: EMR reviewed. Pt is on day 4 of hospitalization for staph, bacteremia for CAIN per H&P. ID is following pt. Podiatry is consulting. Pt is not medically stable for discharge, pt will require negative blood cultures prior to discharge, anticipate 1-2 more days. Pt will need IV abx at discharge. SW received call from Maribel Carreno, liaison with [facility], regarding pts out of pocket costs. Pt is 100% covered with no deductible. SW met with pt at bedside regarding out of pocket costs and coverage, pt agreeable to plan. Pt to discharge on IV abx through [facility], SW will continue to follow. Assessment: Pt who will need IV abx at discharge Data: Pt is covered 100% for home infusion. Pt to discharge home with IV abx through [facility] and to transport via POV. SW will continue to follow. ETTA Denise
--- NOTE | 2017-01-21 13:18 | PROG NOTE ---
[address] [address] PROGRESS NOTE PATIENT: MARTIN MONTOYA : 1965 MR#: [id number] ADMIT: 01/17/2017 JOB ID: [id number] DATE: 01/21/2017 REASON FOR FOLLOWUP: High-grade MSSA bacteremia. INTERVAL HISTORY: Overnight, the patient has been free of fevers or chills, but he continues to feel quite weak and tired. He notes he still has the right flank pain which is quite focal and seems to change a bit as he leans back and forth in bed or in the chair. The patient does not have any cough, chest pain, or shortness of breath. No nausea, vomiting, diarrhea, dysuria. No focal findings and no focal symptoms at all. PHYSICAL EXAMINATION: Reveals a muscular gentleman in no acute distress. He has been afebrile now for almost four days after an initial temperature of 39.1, currently 36.7. Pulse 57, respiratory rate 17, blood pressure 134/83. He is saturating well on room air. Examination of the head shows no abnormalities. Eyes without conjunctival hemorrhages. No adenopathy. Lungs clear. Cardiac tones without murmur. Abdomen benign. The right flank area, he describes as painful. Has no overlying lesions such as early herpes zoster or anything else than I can observe. No skin rashes noted. LABORATORIES: Include a white count 8700, with 2% metamyelocytes for the first time. Creatinine 0.7. LFTs slowly increasing. Alk phos 169. ALT 123. Albumin 3.3. Urinalysis without white cells. Our blood cultures from the just turned positive, one bottle out of four and this took basically two days to turn. The blood cultures from yesterday remain negative. Prior cultures on the were positive. IMAGING: Reviewed. I went to Radiology and reviewed all the patient's images with three radiologists and we had a little conference. At the conclusion of this conference, the radiologists were unable to suggest any additional tests that they felt would be of any utility. 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 Serial blood cultures have remained positive up to and including January 19 and started back on January 13, when the first positives were obtained in [place]. Many diagnostic studies, including magnetic resonance imaging scans of the entire spine, transesophageal echo, right upper quadrant ultrasound, and two abdominal pelvic computerized axial tomography scans have been normal. The cause of his pain in the right flank remains mysterious as does the source of the continued positive blood cultures. RECOMMENDATIONS: 1. Two additional blood cultures will be done today. 2. Hepatitis C serology will be checked. 3. Will continue to follow this patient with you very closely. 4. This case discussed with Dr. Camara. Will place a PICC line once and prepare the patient for discharge but not until we have blood cultures negative for three days. At the earliest those blood cultures would be negative three days now on the , so the patient will be here a bit longer. 5. If positive blood cultures continue, a labeled white scan may be considered, but because of delays in getting this test and inherent problems with this study, I am going to hold off for a couple days on that.
[2017-01-21] MEDS: HYDROmorphone 1 mg/mL Inj IVPUSH PRN ×2 (13:42→22:29)
[2017-01-21 14:49] VITALS: BP 133/82; PULSE 55; RESP 17; O2SAT 96
--- NOTE | 2017-01-21 15:21 | PCM.PNMED ---
Subjective Date of Service January 21, 2017 Subjective Patient feeling better overall. Afebrile for the last 48 hours. Flank pain improved.09/13 Blood culture from 01/19 positive. Blood cultures from 01/20 negative Exam Vital Signs Vital Sign - Last Date Time Temp Pulse Resp B/P Pulse Ox O2 Delivery O2 Flow Rate FiO2 01/21/17 14:49 37.1 55 17 133/82 96 Room Air Intake and Output 01/20/17 01/20/17 01/21/17 Cumulative From/Thru 15:00 23:00 07:00 01/17/17 18:08 - 01/21/17 06:49 Intake Total 2342 ml 400 ml 9551 ml Output Total 2780 ml 1050 ml 67845 ml Balance -438 ml -650 ml -829 ml Intake Oral 1440 ml 400 ml 3890 ml IV Total 902 ml 5661 ml Output Urine Total 2780 ml 1050 ml 24992 ml # Voids 0 # Bowel Movements 0 0 0 Exam Gen. patient is lying comfortably in hospital bed HEENT: Head is normocephalic atraumatic, Pupils equal and reactive, extraocular movements intact, Lungs clear to auscultation bilaterally Heart regular rate and rhythm without murmurs gallops or rubs Abdomen soft nontender without hepatosplenomegaly, mild tenderness on right upper flank , much improved Extremities pulses are present dorsalis pedis posterior tibialis and radial. Skin is warm and dry there are no rashes,no tenderness or erythema on foot Psych alert and oriented to person place and time Neuro cranial nerves II through XII are grossly intact Lymph: There is no lymphadenopathy appreciated in the cervical supra infraclavicular regions : no christianson IVs and Medications Medications Reviewed: Medications were reviewed in detail Lab and Diagnostics Result Diagram: 01/21/17 0810 01/21/17 0810 X-Rays, CTs and MRIs Initial WBC 4.7, initial lactic acid 1.3, BMP unremarkable, urinalysis 6-10rbcs , influenza A and B-, infectious mononucleosis negative Blood cultures growing Staphylococcus aureus x4 ESr 18, CT scan of abdomen minimal fat stranding at root of mesentery which could represent mesenteric panniculitis. TTE EF 70% no obvious vegetations CXr increased bibasilar consolidation, mildly pneumonia Abdominal ultrasound: Borderline splenomegaly, hypoechoic lesion on left lobe suggestive of hemangioma, no chronic testes, normal kidneys XRfoot mild cortical irregularity, consistent with possible osteomyelitis. There is also some soft tissue swelling of the lateral foot. MRI lumbar spine some marrow edema within the left L5 greater than L4 pedicles. Some degenerative edema versus stress reaction. No finding to suggest a discitis or osteomyelitis PROCEDURE: X-RAY TOESS, TWO VIEWS INDICATIONS: staph sepsis after foot hardware IMPRESSION: 1. Postsurgical changes as above. 2. Although no bony erosions are identified, plain film radiography is relatively insensitive in the acute phases of osteomyelitis and may not demonstrate radiographic changes for 15 days. If acute osteomyelitis is of clinical concern, nuclear medicine regional bone scan or MRI is recommended. Dictated by: Abhijit Long [facility] Interpreted: Dennis Flores MD on 01/20/2017 at 13: 49 PROCEDURE: CT CHEST, ABDOMEN AND PELVIS WTIH CONTRAST ([id number]) INDICATIONS: hi grade staph bacteremia and R flank pain IMPRESSION: 1. No acute findings in the chest, abdomen or pelvis to explain bacteremia and right flank pain. No kidney stones or evidence of appendicitis. 2. Left supraumbilical bowel wall air is likely an injection site but correlation needed. Dictated by: Ian Flores M.D. on 01/20/2017 at 9:42 PROCEDURE: MRI LUMBAR SPINE WITH AND WITHOUT CONTRAST ([id number]) INDICATIONS: R/O spinal epidural absces IMPRESSION: 1. No abnormal enhancement of the cord or nerve roots. No epidural fluid collections or abscesses. 2. Moderate multilevel degenerative changes of the lumbar spine are primarily evident involving the mid to lower lumbar facet joints. 3. No disc protrusions or extrusions. 4. Bilateral L5 pars defects with corresponding grade 1 anterolisthesis of L5 on S1. 5. Central canal stenosis: (L2-L3 (mild). 6. Neural foraminal stenosis: L2-L3 (mild bilateral), L3-L4 (moderate bilateral ), L4-L5 (moderate bilateral), L5-S1 (mild bilateral). Dictated by: Michael Mello M.D. on 01/18/2017 at 11:13 Cardiac Echo Impressions CAIN Interpretation Summary The left ventricle is normal in size, wall thickness, and systolic function without any focal wall motion abnormalities. The ejection fraction is estimated to be 55-60%. The right ventricle is normal in size and function. There is no significant valvular heart disease. No evidence for endocarditis. Assessment & Plan 51-year-old gentleman with no significant past medical history presented to [facility] on 01/15 due to very high-grade fever, chills and right flank pain. # MSSA bacteremia of unclear source,acute,poa -blood cultures sent on 01/14,01/15 and 01/17 growing MSSA,blood cx sent 01/19 1 out of growing staph,blood culture from 01/20/ no growth,bcx 01/21 pending initially treated with Zosyn and vancomycin ,switched to Ancef 01/18 - CAIN negative for endocarditis. Ultrasound of abdomen unrevealing -Mention of possible cellulitis and osteomyelitis on x-ray of foot done at [facility] but clinically no evidence so far . No tenderness at all .no source of infection identified after extensive workup . consulted podiatry for evaluation of foot given initial XR at [facility] .no intervention indicated and unlikely to be source of infection. -will hold off PICC until blood cx negative for 3 days ,at least until 01/23 if last blood cultures continues to be negative. Plan to treat for 4 weeks after last negative blood culture per ID -ID considering WBC scan if last blood culture grows/bacteremia recurs -Severe pain and tenderness on right flank but negative on imaging.MRI of spine negative -ID Dr Haines on board # Transaminitis,poa -rising LFTs -likely due to meds given normal RUQ US -HCV pending # Severe right flank pain -Unclear etiology, imaging unrevealing -Dilaudid when necessary # Constipation -bowel regimen Full code ,names his as Bernarda ALDRIDGE [phone] Patient admitted under inpatient status with expected length of stay > 2 midnights for severity of present symptoms, complexities of treatment plan and risk for adverse events disposition:pending hospital course Leroy Camara MD January 21, 2017 15:21
--- NOTE | 2017-01-21 19:20 | NUR ---
Pain Pt reports 4/10 pain and appears uncomfortable. he requests IVP Dilaudid and Ibuprofen. Medications administered at approx 1830. Pt now reports 2/10 pain and appears more comfortable. Pt uses call light appropriately, bed down and in locked position
[2017-01-21 20:18] VITALS: BP 125/85; PULSE 58; RESP 16; O2SAT 92
[2017-01-22] MEDS: CeFAZolin Inj 2 GM in IV Premix 1 EACH IV SCH ×4 (00:19→16:35)
[2017-01-22] MEDS: Sodium Chloride LOK Flush 10 mL Syringe IVFLUSH SCH ×3 (00:30→16:35)
[2017-01-22 00:41] VITALS: BP 101/61; PULSE 62; RESP 20; O2SAT 97
--- NOTE | 2017-01-22 03:03 | NUR ---
PAIN / FEVER Requested prn Dilauded 1mg x 1 thru NOC for 3/10 R flank pain, which he states is "getting better." Declined any further pain med during night, "I want to work and push thru it." Tolerated OOB to shower this PM. Improved PO intake; ate 100% of meal brought in by spouse. Continues to be afebrile, 36.6.
[2017-01-22 04:58] VITALS: BP 121/76; PULSE 60; RESP 20; O2SAT 96
[2017-01-22] MEDS: Polyethylene Glycol (PEG) 17 Gm Powder PO PRN (09:20)
[2017-01-22] MEDS: 0.9% Sodium Chloride 1,000 ML IV SCH ×2 (09:41→19:39)
--- NOTE | 2017-01-22 10:42 | PROG NOTE ---
[address] [address] PROGRESS NOTE PATIENT: MARTIN MONTOYA : 1965 MR#: [id number] ADMIT: 01/17/2017 JOB ID: [id number] DATE: 01/22/2017 INFECTIOUS DISEASE FOLLOW UP NOTE: REASON FOR FOLLOWUP: High-grade and sustained MSSA bacteremia. INTERVAL HISTORY: Overnight, the patient has continued to have the right flank pain which has troubled him since prior to this admission. It seems to be positional as he is noted and both the patient and I are wondering if maybe this is unrelated to his infection. The patient states that he has had no more of the fevers or chills, however, even as his right flank pain continues. He has no cough, shortness of breath, nausea, vomiting or diarrhea. No problems with his peripheral IV or his antibiotics. PHYSICAL EXAMINATION: Reveals an afebrile gentleman, he has been afebrile now for greater than four days. Current temperature is 36.6, pulse 60, respiratory rate 20, blood pressure 121/76, saturating well on room air. Examination of the eyes: No conjunctival hemorrhages. Lungs are clear. Cardiac tones: Regular rate and rhythm without murmur. There is no right flank tenderness to palpation at least. No skin rash noted. No peripheral stigmata of endocarditis. LABORATORIES: Include a white count yesterday of 8700, but 2% myelocytes, not repeated today. His creatinine yesterday 0.7. ALT is 123. Alk phos 169. Urinalysis without white cells. Hep C antibody negative. Blood cultures: All bottles were positive on the . On the only one of four bottles grew Staph aureus. From the and all eight bottles are negative so far. No new imaging is available. Urology saw the patient and concluded that his right foot was not the source of his MSSA bacteremia. 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 We have investigated his spine as well as his heart valves and his right upper quadrant without finding any evidence of infection. He also has a persistent mild hepatitis which I suspect may be steatohepatitis as we have not found any other explanation. RECOMMENDATIONS: 1. No additional blood cultures needed today. 2. Will continue to follow this patient over the weekend. 3. If on Tuesday, the , his blood cultures from the and are still negative, we can proceed with a PICC line and will set him up for home IV infusion therapy to complete four weeks total of treatment.
--- NOTE | 2017-01-22 12:17 | PCM.PNMED ---
Subjective Date of Service January 22, 2017 Subjective Remains afebrile. Continues to feel better. Last Blood culture negative. Exam Vital Signs Vital Sign - Last Date Time Temp Pulse Resp B/P Pulse Ox O2 Delivery O2 Flow Rate FiO2 01/22/17 04:58 36.6 60 20 121/76 96 Room Air Intake and Output 01/21/17 01/21/17 01/22/17 Cumulative From/Thru 14:59 22:59 06:59 01/17/17 18:08 - 01/22/17 06:07 Intake Total 1629 ml 1096 ml 565 ml 12144 ml Output Total 1775 ml 900 ml 76024 ml Balance 1629 ml -679 ml -335 ml -214 ml Intake Oral 1000 ml 400 ml 5290 ml IV Total 1629 ml 96 ml 165 ml 7551 ml Output Urine Total 1775 ml 900 ml 89443 ml # Voids 0 # Bowel Movements 0 0 Exam Gen. patient is lying comfortably in hospital bed HEENT: Head is normocephalic atraumatic, Pupils equal and reactive, extraocular movements intact, Lungs clear to auscultation bilaterally Heart regular rate and rhythm without murmurs gallops or rubs Abdomen soft nontender without hepatosplenomegaly, mild tenderness on right upper flank , much improved Extremities pulses are present dorsalis pedis posterior tibialis and radial. Skin is warm and dry there are no rashes,no tenderness or erythema on foot Psych alert and oriented to person place and time Neuro cranial nerves II through XII are grossly intact Lymph: There is no lymphadenopathy appreciated in the cervical supra infraclavicular regions : no christianson IVs and Medications Medications Reviewed: Medications were reviewed in detail Lab and Diagnostics Result Diagram: 01/21/17 0810 01/21/17 0810 X-Rays, CTs and MRIs Initial WBC 4.7, initial lactic acid 1.3, BMP unremarkable, urinalysis 6-10rbcs , influenza A and B-, infectious mononucleosis negative Blood cultures growing Staphylococcus aureus x4 ESr 18, CT scan of abdomen minimal fat stranding at root of mesentery which could represent mesenteric panniculitis. TTE EF 70% no obvious vegetations CXr increased bibasilar consolidation, mildly pneumonia Abdominal ultrasound: Borderline splenomegaly, hypoechoic lesion on left lobe suggestive of hemangioma, no chronic testes, normal kidneys XRfoot mild cortical irregularity, consistent with possible osteomyelitis. There is also some soft tissue swelling of the lateral foot. MRI lumbar spine some marrow edema within the left L5 greater than L4 pedicles. Some degenerative edema versus stress reaction. No finding to suggest a discitis or osteomyelitis PROCEDURE: X-RAY TOESS, TWO VIEWS INDICATIONS: staph sepsis after foot hardware IMPRESSION: 1. Postsurgical changes as above. 2. Although no bony erosions are identified, plain film radiography is relatively insensitive in the acute phases of osteomyelitis and may not demonstrate radiographic changes for 15 days. If acute osteomyelitis is of clinical concern, nuclear medicine regional bone scan or MRI is recommended. Dictated by: Abhijit Long [facility] Interpreted: Dennis Flores MD on 01/20/2017 at 13: 49 PROCEDURE: CT CHEST, ABDOMEN AND PELVIS WTIH CONTRAST ([id number]) INDICATIONS: hi grade staph bacteremia and R flank pain IMPRESSION: 1. No acute findings in the chest, abdomen or pelvis to explain bacteremia and right flank pain. No kidney stones or evidence of appendicitis. 2. Left supraumbilical bowel wall air is likely an injection site but correlation needed. Dictated by: Ian Flores M.D. on 01/20/2017 at 9:42 PROCEDURE: MRI LUMBAR SPINE WITH AND WITHOUT CONTRAST ([id number]) INDICATIONS: R/O spinal epidural absces IMPRESSION: 1. No abnormal enhancement of the cord or nerve roots. No epidural fluid collections or abscesses. 2. Moderate multilevel degenerative changes of the lumbar spine are primarily evident involving the mid to lower lumbar facet joints. 3. No disc protrusions or extrusions. 4. Bilateral L5 pars defects with corresponding grade 1 anterolisthesis of L5 on S1. 5. Central canal stenosis: (L2-L3 (mild). 6. Neural foraminal stenosis: L2-L3 (mild bilateral), L3-L4 (moderate bilateral ), L4-L5 (moderate bilateral), L5-S1 (mild bilateral). Dictated by: Michael Mello M.D. on 01/18/2017 at 11:13 Cardiac Echo Impressions CAIN Interpretation Summary The left ventricle is normal in size, wall thickness, and systolic function without any focal wall motion abnormalities. The ejection fraction is estimated to be 55-60%. The right ventricle is normal in size and function. There is no significant valvular heart disease. No evidence for endocarditis. Assessment & Plan 51-year-old gentleman with no significant past medical history presented to [facility] on 01/15 due to very high-grade fever, chills and right flank pain. # MSSA bacteremia of unclear source,acute,poa -blood cultures sent on 01/14,01/15 and 01/17 growing MSSA,blood cx sent 01/19 1 out of 2 growing staph,blood culture from 01/20 2/2 no growth,bcx 01/21 pending initially treated with Zosyn and vancomycin ,switched to Ancef 01/18 - CAIN negative for endocarditis. Ultrasound of abdomen unrevealing -Mention of possible cellulitis and osteomyelitis on x-ray of foot done at [facility] but clinically no evidence so far . No tenderness at all .no source of infection identified after extensive workup . consulted podiatry for evaluation of foot given initial XR at [facility] .no intervention indicated and unlikely to be source of infection. -will hold off PICC until blood cx negative for 3 days ,at least until 01/24 if last blood cultures continues to be negative. Plan to treat for 4 weeks after last negative blood culture per ID -ID considering WBC scan if last blood culture grows/bacteremia recurs -Severe pain and tenderness on right flank but negative on imaging.MRI of spine negative -ID Dr Haines on board # Transaminitis,poa -rising LFTs -likely due to meds given normal RUQ US -HCV pending # Severe right flank pain -Unclear etiology, imaging unrevealing -Dilaudid when necessary # Constipation -bowel regimen Full code ,names his as Bernarda ALDRIDGE [phone] Disposition: Patient comes started on Wednesday 01/24 if Blood culture remains negative to complete 4 weeks of iv antibiotics at home eLroy Camara MD January 22, 2017 12:17
[2017-01-22 13:32] VITALS: BP 116/73; PULSE 62; RESP 19; O2SAT 99
[2017-01-22] MEDS: HYDROmorphone 1 mg/mL Inj IVPUSH PRN (16:00)
--- NOTE | 2017-01-22 18:31 | NUR ---
Pain Pt stating 2/10 at start of shift, stating tolerable/manageable. Refusing the need for pain medication at this time. Is aware of what is available to him. Is able to make his needs known. Pt received Motrin at ~1300, stated effective for short time and then requesting Dilaudid. Had not yet had dose since previous night. Effective, no current c/o pain; ambulating hallway. No acute issues this shift. Care continues.
[2017-01-22 20:26] VITALS: BP 109/73; PULSE 64; RESP 18; O2SAT 96
[2017-01-23] MEDS: CeFAZolin Inj 2 GM in IV Premix 1 EACH IV SCH ×3 (00:26→16:56)
[2017-01-23] MEDS: Sodium Chloride LOK Flush 10 mL Syringe IVFLUSH SCH ×3 (00:28→16:56)
--- NOTE | 2017-01-23 02:31 | NUR ---
Pain / sleep patient reports an acceptable 2/10 pain level thru the NOC, declined any offers of PRN pain med. Tolerated amb hallway several times. Denies SOB, chest pain. VSS. care continues.
[2017-01-23 05:30] VITALS: BP 100/59; PULSE 57; RESP 16; O2SAT 95
[2017-01-23] MEDS: 0.9% Sodium Chloride 1,000 ML IV SCH ×2 (05:41→15:41)
[2017-01-23] MEDS: Polyethylene Glycol (PEG) 17 Gm Powder PO PRN (08:51)
[2017-01-23] MEDS ORDERED: 0.9% Sodium Chloride 250 ML ONE (09:53)
--- NOTE | 2017-01-23 12:57 | PCM.PNMED ---
Subjective Date of Service January 23, 2017 Subjective no overnight event, discussed about plan, pt is fully on board cultures 01/20, remained negative Exam Vital Signs Vital Sign - Last Date Time Temp Pulse Resp B/P Pulse Ox O2 Delivery O2 Flow Rate FiO2 01/23/17 05:30 36.9 57 16 100/59 95 Room Air Intake and Output 01/22/17 01/22/17 01/23/17 Cumulative From/Thru 15:00 23:00 07:00 01/17/17 18:08 - 01/23/17 05:58 Intake Total 305 ml 1101 ml 469 ml 62521 ml Output Total 1675 ml 36608 ml Balance 305 ml -574 ml 469 ml -14 ml Intake Oral 1000 ml 6290 ml IV Total 305 ml 101 ml 469 ml 8426 ml Output Urine Total 1675 ml 62033 ml # Voids 0 # Bowel Movements 0 Exam NAD, comfortably laying down on the bed no JVD, MMM, no LAD RRR, nl s1, s2 no mrg CTAB, no w,c S,ND,NT,normoactive BS+ warm, no edema, pulses 2/2 IVs and Medications Medications Reviewed: Medications were reviewed in detail Lab and Diagnostics Result Diagram: 01/21/17 0810 01/21/17 0810 X-Rays, CTs and MRIs Initial WBC 4.7, initial lactic acid 1.3, BMP unremarkable, urinalysis 6-10rbcs , influenza A and B-, infectious mononucleosis negative Blood cultures growing Staphylococcus aureus x4 ESr 18, CT scan of abdomen minimal fat stranding at root of mesentery which could represent mesenteric panniculitis. TTE EF 70% no obvious vegetations CXr increased bibasilar consolidation, mildly pneumonia Abdominal ultrasound: Borderline splenomegaly, hypoechoic lesion on left lobe suggestive of hemangioma, no chronic testes, normal kidneys XRfoot mild cortical irregularity, consistent with possible osteomyelitis. There is also some soft tissue swelling of the lateral foot. MRI lumbar spine some marrow edema within the left L5 greater than L4 pedicles. Some degenerative edema versus stress reaction. No finding to suggest a discitis or osteomyelitis PROCEDURE: X-RAY TOESS, TWO VIEWS INDICATIONS: staph sepsis after foot hardware IMPRESSION: 1. Postsurgical changes as above. 2. Although no bony erosions are identified, plain film radiography is relatively insensitive in the acute phases of osteomyelitis and may not demonstrate radiographic changes for 15 days. If acute osteomyelitis is of clinical concern, nuclear medicine regional bone scan or MRI is recommended. Dictated by: Abhijit Long [facility] Interpreted: Dennis Flores MD on 01/20/2017 at 13: 49 PROCEDURE: CT CHEST, ABDOMEN AND PELVIS WTIH CONTRAST ([id number]) INDICATIONS: hi grade staph bacteremia and R flank pain IMPRESSION: 1. No acute findings in the chest, abdomen or pelvis to explain bacteremia and right flank pain. No kidney stones or evidence of appendicitis. 2. Left supraumbilical bowel wall air is likely an injection site but correlation needed. Dictated by: Ian Flores M.D. on 01/20/2017 at 9:42 PROCEDURE: MRI LUMBAR SPINE WITH AND WITHOUT CONTRAST ([id number]) INDICATIONS: R/O spinal epidural absces IMPRESSION: 1. No abnormal enhancement of the cord or nerve roots. No epidural fluid collections or abscesses. 2. Moderate multilevel degenerative changes of the lumbar spine are primarily evident involving the mid to lower lumbar facet joints. 3. No disc protrusions or extrusions. 4. Bilateral L5 pars defects with corresponding grade 1 anterolisthesis of L5 on S1. 5. Central canal stenosis: (L2-L3 (mild). 6. Neural foraminal stenosis: L2-L3 (mild bilateral), L3-L4 (moderate bilateral ), L4-L5 (moderate bilateral), L5-S1 (mild bilateral). Dictated by: Michael Mello M.D. on 01/18/2017 at 11:13 Cardiac Echo Impressions CAIN Interpretation Summary The left ventricle is normal in size, wall thickness, and systolic function without any focal wall motion abnormalities. The ejection fraction is estimated to be 55-60%. The right ventricle is normal in size and function. There is no significant valvular heart disease. No evidence for endocarditis. Assessment & Plan 51-year-old gentleman with no significant past medical history presented to [facility] on 01/15 due to very high-grade fever, chills and right flank pain. # MSSA bacteremia of unclear source,acute,poa, blood cultures sent on 01/14,01/15 and 01/17 growing MSSA,blood cx sent 01/19 1 out of 2 growing staph,blood culture from 01/20 2/ no growth,bcx 01/21 pending initially treated with Zosyn and vancomycin ,switched to Ancef 01/18, CAIN negative for endocarditis. Ultrasound of abdomen unrevealing, Mention of possible cellulitis and osteomyelitis on x-ray of foot done at [facility] but clinically no evidence so far . No tenderness at all .no source of infection identified after extensive workup . consulted podiatry for evaluation of foot given initial XR at [facility] .no intervention indicated and unlikely to be source of infection. -patient is clinically stable, afebrile -hold off PICC until blood cx negative for 3 days ,at least until 01/24 if last blood cultures continues to be negative. Plan to treat for 4 weeks after last negative blood culture per ID -ID considering WBC scan if last blood culture grows/bacteremia recurs -Severe pain and tenderness on right flank but negative on imaging.MRI of spine negative -ID Dr Haines on board # Transaminitis,poa -rising LFTs -likely due to meds given normal RUQ US -HCV pending # Severe right flank pain -Unclear etiology, imaging unrevealing -Dilaudid when necessary # Constipation -bowel regimen Full code ,names his as Bernarda ALDRIDGE [phone] Disposition: Patient comes started on Wednesday 01/24 if Blood culture remains negative to complete 4 weeks of iv antibiotics at home Time spent 35min Judie Abernathy MD January 23, 2017 12:57
[2017-01-23 15:50] VITALS: BP 120/84; PULSE 81; RESP 18; O2SAT 97
--- NOTE | 2017-01-23 17:44 | NUR ---
Activity / Pain Pt OOB frequently ambulating hallways. Pt reports pain only once this shift. Ibuprofen administered w/ good results. Bed is down and in locked position, call light w/in reach and used appropriately.
--- NOTE | 2017-01-23 18:19 | PCM.CHPPOD ---
Subjective Date of service January 21, 2017 History of Present Illness 51 year old male admitted for treatment of sepsis with positive blood cultures. patient has extensive history of surgical intervention involving his right 1st ray including hallux valgus repair, ORIF, metatarsal lengthening with bone graft , hallux ipj fusion and most recently ostectomy of the right plantar hallux november [address] Evonne Holcomb. patient denies any issues following his most recent surgery which he states as uneventful. Xrays reveal intact internal fixation of the right first metatarsal and hallux with previous IPJ fusion. degenerative changes of the sesamoids are noted. Allergy Allergies: Coded Allergies: No Known Allergies (Unverified Allergy, 08/17/13) Medications Eszopiclone (Lunesta) 2 Mg Tablet 2 MG PO HS PRN PRN Insomnia Fluticasone Propionate (Flonase Allergy Relief) 50 Mcg/Actuation [place].susp 9.9 ML NS DAILY PRN PRN PRN Past Medical History Surgeries: Yes (right foot bone spur, metal bone extension, left kne, left ulnar trasplant) Medical History: Surgical History: Social History Hx Alcohol Use: Yes (wine occasionally) Hx Substance Use: No Hx Tobacco Use: No Smoking Status: Former Smoker Podiatry Consult Exam Vital Signs Vital Sign - Last Date Time Temp Pulse Resp B/P Pulse Ox O2 Delivery O2 Flow Rate FiO2 01/23/17 15:50 36.6 81 18 120/84 97 Room Air Intake and Output 01/22/17 01/22/17 01/23/17 Cumulative From/Thru 15:00 23:00 07:00 01/17/17 18:08 - 01/23/17 05:58 Intake Total 305 ml 1101 ml 469 ml 77404 ml Output Total 1675 ml 06689 ml Balance 305 ml -574 ml 469 ml -14 ml Intake Oral 1000 ml 6290 ml IV Total 305 ml 101 ml 469 ml 8426 ml Output Urine Total 1675 ml 72794 ml # Voids 0 # Bowel Movements 0 Result Diagram: 01/21/17 0810 01/21/17 0810 Lab Test 01/17/17 18:45 01/17/17 20:53 01/19/17 07:40 01/21/17 08:10 Procalcitonin 0.70ng/mL (0.00-0.08) Hold Nguyen Top Tube Received (Received) Urine Color Yellow (YELLOW) Urine Appearance Clear (CLEAR,HAZY) Urine pH 7.0 (5.0-8.0) Urine Specific [place] 1.015 (1.003-1.035) Urine Protein 30mg/dL (NEG,TRACE) Urine Glucose (UA) Negativemg/dL (NEGATIVE) Urine Ketones Negativemg/dL (NEGATIVE) Urine Occult Blood Large (NEGATIVE) Urine Nitrite Negative (NEGATIVE) Urine Bilirubin Negative (NEGATIVE) Urine Urobilinogen 2.0mg/dL (NORMAL) Urine Leukocyte Esterase Negative (NEGATIVE) Urine RBC 11-50/hpf (0-2) Urine WBC 0-5/hpf (0-5) Urine Epithelial Cells None/hpf (NONE-MOD) Urine Crystals None seen (NONE SEEN) Urine Bacteria Few/hpf (NONE-FEW) Urine Hyaline Casts None/lpf (NONE) Urine Granular Casts None seen (NONE SEEN) Urine Waxy Casts None seen (NONE SEEN) Urine Red Blood Cell Casts None seen (NONE SEEN) Urine White Blood Cell Casts None seen (NONE SEEN) Urine Mucus None seen (None Seen) Urine Trichomonas None seen (NONE SEEN) Urine Yeast None (NONE SEEN) Urinalysis Comment None Urine Culture Reflexed Not indicated Magnesium Level 2.2mg/dL (1.6-2.6) Vancomycin Level Trough 2.3mcg/mL White Blood Count 8.7th/mm3 (3.8-10.1) Red Blood Count 4.24mil/mm3 (4.40-5.80) Hemoglobin 12.5g/dL (13.8-17.2) Hematocrit 37.2% (41.0-50.0) Mean Corpuscular Volume 87.7fL (81-100) Mean Corpuscular Hemoglobin 29.5pg (27.0-35.0) Mean Corpuscular Hemoglobin Concent 33.6% (32.0-37.0) Red Cell Distribution Width 13.3% (12.3-15.4) Platelet Count daria/L (150-400) Neutrophils (%) (Auto) 46% (40-74) Lymphocytes (%) (Auto) 36% (14-46) Monocytes (%) (Auto) 11% (4-12) Eosinophils (%) (Auto) 3% (0-5) Basophils (%) (Auto) 2% (0-3) Band Neutrophils % 0% (1-5) Metamyelocytes % 0% (0-0) Myelocytes % 2% (0-0) Prothrombin Time 9.9sec (8.1-12.5) Prothromb Time International Ratio 0.93ratio Sodium Level 139mEq/L (134-144) Potassium Level 3.8mEq/L (3.5-5.2) Chloride Level 102mEq/L (97-108) Carbon Dioxide Level 22mmol/L (18-29) Blood Urea Nitrogen 8mg/dL (6-24) Creatinine 0.70mg/dL (0.76-1.27) Estimat Glomerular Filtration Rate 127mL/min (>59) Glucose Level 111mg/dL (60-99) Calcium Level 8.5mg/dL (8.5-10.1) Total Bilirubin 0.4mg/dL (0.0-1.2) Aspartate Amino Transf (AST/SGOT) 106U/L (0-50) Alanine Aminotransferase (ALT/SGPT) 123U/L (0-44) Alkaline Phosphatase 169U/L (25-150) Total Protein 6.5g/dL (6.4-8.4) Albumin 3.3g/dL (3.4-5.0) Hepatitis C Antibody <0.1s/co ratio (0.0-0.9) Exam General: Alert, Oriented X3, Cooperative, No Acute Distress Lungs: Clear to Auscultation, Normal Air Movement Cardiac: Exam Unremarkable, Regular Rate/Rhythm, No Murmurs/Rubs/Gallops Lower Extremity Pulses: Palpable: Left Dorsalis Pedis Left Posterior Tibal Right Dorsalis Pedis Right Posterior Tibal Podiatry WOUND : Wound Location/Description right plantar hallux incision is well healed without signs of dehiscence or infection no surrounding erythema, no fluctuance noted. minimal scar formation. limited ROM of the right 1st MTPJ without pain. healed dorsal scar. no notable edema. Assessment & Plan Assessment stable right foot with history of multiple surgical interventions. degenerative arthritis of sesamoids. Problems: Plan patient evaluated at bedside in detail today. no signs of abscess formation or infection involving the right foot. Without open ulceration or abscess the foot is an unlikely source of this patients bacteremia and positive blood cultures. xrays are negative with the exception of some degenerative changes of the sesamoid bones, however there are no clinical signs of infection involving the sesamoids. further imaging of the right foot is unlikely to be of any diagnostic value however if no other source of infection can be identified a 4 phase WBC labeled bone scan would be the most useful study available. no further podiatric needs at this time. Podiatry will sign off at this time. Patient is to follow up with Dr. Holcomb upon DC. Please reconsult if anything further is needed. Sami Cornejo DPM January 23, 2017 18:19
[2017-01-23 21:24] VITALS: BP 121/80; PULSE 64; RESP 18; O2SAT 97
[2017-01-24] MEDS: CeFAZolin Inj 2 GM in IV Premix 1 EACH IV SCH ×3 (00:39→15:52)
[2017-01-24] MEDS: Sodium Chloride LOK Flush 10 mL Syringe IVFLUSH SCH ×3 (00:39→15:52)
[2017-01-24] MEDS: 0.9% Sodium Chloride 1,000 ML IV SCH ×2 (01:41→11:41)
--- NOTE | 2017-01-24 02:59 | NUR ---
pain / sleep Patient reported 2/10 right flank pain at begin of shift; at HS states pain is gone. Sleeping well thru NOC.
[2017-01-24 06:30] VITALS: BP 155/74; PULSE 85; RESP 18; O2SAT 100
[2017-01-24 06:47] LABS: Mean Corpuscular Hemoglobin 29.5 pg (27.0-35.0); Mean Corpuscular Volume 87.4 fL (81-100); Platelet Count 588 bil/L (150-400)
[2017-01-24] MEDS ORDERED: Sodium Chloride LOK Flush 10 mL Syringe IVFLUSH PRN ×2 (06:50)
[2017-01-24 07:19] LABS: Magnesium 2.4 mg/dL (1.6-2.6); Phosphorus 3.6 mg/dL (2.5-4.9)
[2017-01-24 07:53] LABS: MONOCYTES % (AUTO) 9 % (4-12); NEUTROPHILS % (AUTO) 43 % (40-74)
[2017-01-24 07:54] LABS: BASOPHILS % (AUTO) 0 % (0-3); EOSINOPHILS % (AUTO) 3 % (0-5)
--- NOTE | 2017-01-24 09:20 | PROG NOTE ---
[address] [address] PROGRESS NOTE PATIENT: MARITN MONTOYA : 1965 MR#: [id number] ADMIT: 01/17/2017 JOB ID: [id number] DATE: 01/24/2017 REASON FOR FOLLOWUP: High-grade and prolonged Staph aureus bacteremia. INTERVAL HISTORY: Over the weekend, the patient has felt better and better. At this point he has no headache, sore throat, cough, fevers, chills, sweats, nausea, vomiting, or diarrhea. He feels basically back to normal with perhaps some minimal lingering fatigue. PHYSICAL EXAMINATION: Reveals an afebrile, muscular gentleman in no acute distress. Temp 36.5. His last temperature was really during admission 1 week ago. Pulse 85, respiratory rate 18, blood pressure 155/74, saturating 100% on room air. He is in no acute distress. His eyes without conjunctivitis. Oral cavity negative. Lungs clear. Cardiac tones without murmur, regular rate and rhythm. Abdomen soft and nontender. No right upper quadrant tenderness. DIAGNOSTIC STUDIES: Laboratories include a white count of 9000. Of interest, his platelet count has jumped from normal levels to 588 over the weekend, and he has developed a few more primitive white cells and he now has 2% metamyelocytes and 4% myelocytes. His creatinine is stable at 0.64. LFTs actually improving. AST 64, ALT 109, albumin 3.5. Hep C antibody was negative. Recall that we had many positive blood cultures starting as an outpatient January 13. Then as an inpatient at the [facility] January 14 and and and then here January 17 and , all growing MSSA. Since on the had declined to only 1/4 bottles positive and on the and we have 8 sets of blood cultures all negative. All imaging has previously been reviewed, but basically we have MRIs of the back, multiple chest x-rays, abdominal ultrasound; chest, abdomen, and pelvis CT; and an x-ray of his foot all of which are basically benign. 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 Despite an extensive workup we have failed to find the focal source. The patient had quite severe and unexplained right flank area pain, which was not explained by CT, ultrasound, or any other study and which has now gradually declined to the point that it is barely perceptible. What this represented remains unclear, but it seems to have improved with our antibiotic therapy. My only concerns at this point, with this patient are this metamyelocytes in the peripheral smear as well as the mildly elevated liver function tests, but neither of these serves as a reason for him to stay longer in the hospital. RECOMMENDATIONS: 1. PICC line has been ordered for today. 2. I have written complete home IV infusion orders for cefazolin 6 g per day by continuous infusion through February 17. 3. Weekly labs have been ordered. 4. I will see the patient in my clinic February 02. 5. This case discussed in person with the hospitalist Thank you very much for involving me in this complex case. EDER
[2017-01-24 10:52] VITALS: BP 113/74; PULSE 68; RESP 18; O2SAT 99
--- NOTE | 2017-01-24 11:15 | PCM.DIMED ---
Discharge Instructions Date of Service January 24, 2017 Dates of Hospitalization January 17, 2017 at 17:40 Discharge Diagnosis Discharge Diagnosis MSSA bactremia, unclear source Medication Instructions Cefazolin 2g every 8hours will be continued via PICC line Diet No restrictions Activity No restrictions Call your provider Fever or Chills Patient Instructions You were hospitalized with blood stream infections. Multiple studies in the hospital didn't show any evidence of source of infection. You were treated appropriately with antibiotics, responded well. Please note that you are scheduled to have IV antiobiotics as scheduled, please follow the schedule to finish the course. continuous infusion through February 17. You will need weekly blood draws and follow up with in the clinic on 02/02 Follow-up plan Please follow up with your doctor in 2weeks Follow-up Provider: Momo Hernandez MD Follow-up with PCP in: 2 weeks Judie Abernathy MD January 24, 2017 11:15
--- NOTE | 2017-01-24 13:39 | NUR ---
Pain / activity Pt is afebrile today. Flank pain is much reduced compared to prior days. He c/o headache this a.m. Administered 600 mg PO Motrin. Pt reported that this resolved his headache. Pt has been up independently in his room and also ambulating in the hallway. Awaiting PICC line placement and then discharge.
--- NOTE | 2017-01-24 14:19 | NUR ---
Social Work: Discharge D: EMR reviewed. Pt is on day 7 of hospitalization. SW made T/C to [facility] from [facility] and confirmed PICC line would be placed at 1500 and last does of IVABX would be administered around 1600 at hospital. SW confirmed [facility] will be able to meet with pt at home tonight and pt can text RN when he is available. SW confirmed information with pt and at bedside. Pt to discharge home with via POV and start home IVABX through [facility]. Pt and agreeable to discharge plan. Assessment: Pt for whom IVABX is deemed medically necessary at discharge. Data: Pt is covered 100% for home infusion. Pt to discharge home with IVABX through [facility] and to transport via POV. SW confirmed [facility] will meet pt at home. Pt and agreeable to discharge plan. SW will continue to follow. ETTA Sawant
--- NOTE | 2017-01-24 14:34 | PCM.DC.MED ---
Discharge Summary Date of Service January 24, 2017 Dates of Hospitalization Date of Hospital Admission January 17, 2017 at 17:40 Date of Discharge: January 24, 2017 Providers: Admitting Physician: Leroy Camara MD Primary Care Physician: Momo Hernandez MD Attending Physician: Leroy Camara MD Diagnosis at Time of Discharge Diagnosis at Time of Discharge MSSA bactremia, unclear source Consultations infectious disease Procedures XRay, CTs & MRIs Initial WBC 4.7, initial lactic acid 1.3, BMP unremarkable, urinalysis 6-10rbcs , influenza A and B-, infectious mononucleosis negative Blood cultures growing Staphylococcus aureus x4 ESr 18, CT scan of abdomen minimal fat stranding at root of mesentery which could represent mesenteric panniculitis. TTE EF 70% no obvious vegetations CXr increased bibasilar consolidation, mildly pneumonia Abdominal ultrasound: Borderline splenomegaly, hypoechoic lesion on left lobe suggestive of hemangioma, no chronic testes, normal kidneys XRfoot mild cortical irregularity, consistent with possible osteomyelitis. There is also some soft tissue swelling of the lateral foot. MRI lumbar spine some marrow edema within the left L5 greater than L4 pedicles. Some degenerative edema versus stress reaction. No finding to suggest a discitis or osteomyelitis PROCEDURE: X-RAY TOESS, TWO VIEWS INDICATIONS: staph sepsis after foot hardware IMPRESSION: 1. Postsurgical changes as above. 2. Although no bony erosions are identified, plain film radiography is relatively insensitive in the acute phases of osteomyelitis and may not demonstrate radiographic changes for 15 days. If acute osteomyelitis is of clinical concern, nuclear medicine regional bone scan or MRI is recommended. Dictated by: Abhijit Long [facility] Interpreted: Dennis Flores MD on 01/20/2017 at 13: 49 PROCEDURE: CT CHEST, ABDOMEN AND PELVIS WTIH CONTRAST ([id number]) INDICATIONS: hi grade staph bacteremia and R flank pain IMPRESSION: 1. No acute findings in the chest, abdomen or pelvis to explain bacteremia and right flank pain. No kidney stones or evidence of appendicitis. 2. Left supraumbilical bowel wall air is likely an injection site but correlation needed. Dictated by: Ian Flores M.D. on 01/20/2017 at 9:42 PROCEDURE: MRI LUMBAR SPINE WITH AND WITHOUT CONTRAST ([id number]) INDICATIONS: R/O spinal epidural absces IMPRESSION: 1. No abnormal enhancement of the cord or nerve roots. No epidural fluid collections or abscesses. 2. Moderate multilevel degenerative changes of the lumbar spine are primarily evident involving the mid to lower lumbar facet joints. 3. No disc protrusions or extrusions. 4. Bilateral L5 pars defects with corresponding grade 1 anterolisthesis of L5 on S1. 5. Central canal stenosis: (L2-L3 (mild). 6. Neural foraminal stenosis: L2-L3 (mild bilateral), L3-L4 (moderate bilateral ), L4-L5 (moderate bilateral), L5-S1 (mild bilateral). Dictated by: Michael Mello M.D. on 01/18/2017 at 11:13 PROCEDURE: MRI THORACIC SPINE WITH AND WITHOUT CONTRAST ([id number]) INDICATIONS: R/O spinal epidural abscess TECHNIQUE: Noncontrast sagittal T1 spin echo and T2 fast spin echo, sagittal STIR, axial T1 and T2 fast spin echo through the thoracic spine. After the administration of contrast, axial and sagittal T1 spin echo with fat saturation through the thoracic spine. COMPARISON: None. FINDINGS: Image quality: Diagnostic. Spinal cord: Imaged portions of the spinal cord are within normal limits. The size and signal of the cord is within normal limits. There is no abnormal cord enhancement. No epidural fluid collections or suspicious epidural enhancement is evident. Paraspinous soft tissues: No paravertebral masses or abnormal enhancement. There may be trace bilateral pleural effusions. Bones: There is no acute fracture or dislocation involving the osseous structures of the thoracic spine. No suspicious osseous lesions are identified. However, there is a focal hemangioma identified involving the T9 posterior vertebral body. There may also be a small hemangioma involving the anterior margin of the T12 vertebral body. There is mild straightening of the normal thoracic kyphosis. Areas of mild disc desiccation are noted at the levels of T1-T2 and T7-T8. No focal disc bulges are evident. No central canal or neural foraminal narrowing is present. No disc protrusions or extrusions. IMPRESSION: 1. No evidence of an epidural abscess or abnormal enhancement of the thoracic cord. 2. Mild degenerative changes of the thoracic spine without central canal or neural foraminal narrowing. 3. Small hemangiomas involving the T9 and T12 vertebral bodies. Dictated by: Michael Mello M.D. on 01/18/2017 at 10:41 Approved by: Michael Mello M.D. on 01/18/2017 at 10:45 PROCEDURE: US ABDOMEN INDICATIONS: staph bacteremia, RUQ pain TECHNIQUE: Real-time scanning was performed of the abdominal and retroperitoneal organs, with image documentation. COMPARISON: None. FINDINGS: Liver length: 19.22 cm Gallbladder Wall Thickness: 2.20 mm CHD: 4 mm CBD: 5.80 mm Spleen length: 14.53 cm Right kidney length: 11.20 cm Left kidney length: 14.24 cm Aorta(Proximal): 2.49 cm Aorta(Mid): 2.13 cm Aorta(Distal): 2.02 cm RCIA: 1.46 cm LCIA: 1.22 cm Liver: Liver is normal in size and homogeneous in echotexture. Gallbladder: The gallbladder is unremarkable. Biliary ducts: Intrahepatic bile ducts are non-dilated. Extrahepatic bile duct caliber is normal. Normal is 6-7 mm or less in diameter, or 10 mm or less post-cholecystectomy. Pancreas: Visualized portions of the pancreas are sonographically normal. Spleen: Spleen is normal in size and homogeneous in echotexture. Kidneys: Kidneys are normal in size and echotexture. No hydronephrosis or nephrolithiasis. No solid masses. Aorta: Visualized aorta is normal in caliber at less than 3 cm. Iliacs: Proximal common iliac arteries are normal in caliber at less than 2.5 cm. IVC: Intrahepatic inferior vena cava is patent. Miscellaneous: No free abdominal fluid. IMPRESSION: Normal exam. Dictated by: Abhijit Long [facility] Interpreted: Keiry Marquez MD on 01/19/2017 at 15: 54 Transcribed by: JAKE on 01/19/2017 at 15:55 Approved by: Keiry Marquez M.D. on 01/19/2017 at 17:57 Cardiac Echo Impression CAIN Interpretation Summary The left ventricle is normal in size, wall thickness, and systolic function without any focal wall motion abnormalities. The ejection fraction is estimated to be 55-60%. The right ventricle is normal in size and function. There is no significant valvular heart disease. No evidence for endocarditis. Brief History HPI obtained by on 01/17 51-year-old gentleman with no significant past medical history presented to [facility] on 01/15 due to very high-grade fever, chills and right flank pain. Patient states he started to have intermittent very high-grade fever, temp 104 , on Tuesday. He had low-grade fever on Tuesday. Fever is accompanied by chills. He also has persistent right upper flank pain which also started on Tuesday. He was seen by his PCP on Tuesday afternoon and blood cultures collected. No antibiotics prescribed. He went ED on Tuesday due to worsening symptoms. Blood culture collected at PCPs office growing staph aureus and patient hospitalized. Repeat blood cultures collected in the emergency room also growing staph. Patient was started on Zosyn and vancomycin. Denies urinary complaints. Complains of constipation . Complains of RUQ abdominal pain which started today. He had surgery on bone spur right toe in November. 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 [facility] course: Patient continues to have high-grade fevers temp 104. Continues to have right flank pain and tenderness Initial WBC 4.7, initial lactic acid 1.3, BMP unremarkable, urinalysis 6-10rbcs , influenza A and B-, infectious mononucleosis negative Blood cultures growing Staphylococcus aureus x4 ESr 18, CT scan of abdomen minimal fat stranding at root of mesentery which could represent mesenteric panniculitis. TTE EF 70% no obvious vegetations CXr increased bibasilar consolidation, mildly pneumonia Abdominal ultrasound: Borderline splenomegaly, hypoechoic lesion on left lobe suggestive of hemangioma, no chronic testes, normal kidneys XRfoot mild cortical irregularity, consistent with possible osteomyelitis. There is also some soft tissue swelling of the lateral foot. MRI lumbar spine some marrow edema within the left L5 greater than L4 pedicles. Some degenerative edema versus stress reaction. No finding to suggest a discitis or osteomyelitis ID Dr Haines was contacted by [facility] and patient transferred for more workup and possible CAIN Hospital Course 51-year-old gentleman with no significant past medical history presented to [facility] on 01/15 due to very high-grade fever, chills and right flank pain. acute dx #MSSA bacteremia of unclear source, pt was admitted and underwent extensive w/u for bacteremia. Serial blood cultures 01/17, 01/19 showed MSSA. first negative culture was 01/20, then 01/21 ngtd. pt was initially treated with Zosyn and vancomycin ,switched to Ancef 01/18, CAIN was negative for endocarditis. Ultrasound of abdomen unrevealing, Mention of possible cellulitis and osteomyelitis on x-ray of foot done at [facility] but clinically no evidence so far. No tenderness at all .No source of infection identified after extensive workup . consulted podiatry for evaluation of foot given initial XR at [facility] .no intervention indicated and unlikely to be source of infection. Since pt improved with current abx regimen, remained afebrile,it was decided to treat 4weeks course of Ancef 2g q8h via new PICC line, patient will follow up with Dr.Wallace CORRALES weekly, weekly labs will be drawn. Patient was discharged on stable condition. #thrombocytosis, this is newly developed findings from CBC, noticed [id number] upon d/c from 152K on admission, please trends plt count in the clinic #abnormal wbcs, myelocytes/metamylecytes, this cells were seen 4% and 2% each, band cells were 2%, it's possible that young cells were present in the phase of acute infection, chronicity is unknown, please trend CBC in the clinic. #mild transaminitis, mildly elevated without sx, HCV ab was negative. Abd US showed homogenous texture of liver, no mass. it is unlikely viral/alcoholic hepatitis. Please trend liver enzymes. # Severe right flank pain, resolved, unclear etiology, controlled with Dilaudid when necessary # Constipation, continued on bowel regimen Exam Vital Signs (Last) Date Time Temp Pulse Resp B/P Pulse Ox O2 Delivery O2 Flow Rate FiO2 01/24/17 10:52 36.7 68 18 113/74 99 Room Air Exam NAD, comfortably laying down on the bed no JVD, MMM, no LAD RRR, nl s1, s2 no mrg CTAB, no w,c S,ND,NT,normoactive BS+ warm, no edema, pulses 2/[address] Test 01/17/17 18:45 01/17/17 20:53 01/19/17 07:40 01/21/17 08:10 Procalcitonin 0.70ng/mL (0.00-0.08) Hold Nguyen Top Tube Received (Received) Urine Color Yellow (YELLOW) Urine Appearance Clear (CLEAR,HAZY) Urine pH 7.0 (5.0-8.0) Urine Specific [place] 1.015 (1.003-1.035) Urine Protein 30mg/dL (NEG,TRACE) Urine Glucose (UA) Negativemg/dL (NEGATIVE) Urine Ketones Negativemg/dL (NEGATIVE) Urine Occult Blood Large (NEGATIVE) Urine Nitrite Negative (NEGATIVE) Urine Bilirubin Negative (NEGATIVE) Urine Urobilinogen 2.0mg/dL (NORMAL) Urine Leukocyte Esterase Negative (NEGATIVE) Urine RBC 11-50/hpf (0-2) Urine WBC 0-5/hpf (0-5) Urine Epithelial Cells None/hpf (NONE-MOD) Urine Crystals None seen (NONE SEEN) Urine Bacteria Few/hpf (NONE-FEW) Urine Hyaline Casts None/lpf (NONE) Urine Granular Casts None seen (NONE SEEN) Urine Waxy Casts None seen (NONE SEEN) Urine Red Blood Cell Casts None seen (NONE SEEN) Urine White Blood Cell Casts None seen (NONE SEEN) Urine Mucus None seen (None Seen) Urine Trichomonas None seen (NONE SEEN) Urine Yeast None (NONE SEEN) Urinalysis Comment None Urine Culture Reflexed Not indicated Vancomycin Level Trough 2.3mcg/mL Prothrombin Time 9.9sec (8.1-12.5) Prothromb Time International Ratio 0.93ratio Hepatitis C Antibody <0.1s/co ratio (0.0-0.9) Test 01/24/17 06:10 White Blood Count 9.1th/mm3 (3.8-10.1) Red Blood Count 4.44mil/mm3 (4.40-5.80) Hemoglobin 13.1g/dL (13.8-17.2) Hematocrit 38.8% (41.0-50.0) Mean Corpuscular Volume 87.4fL (81-100) Mean Corpuscular Hemoglobin 29.5pg (27.0-35.0) Mean Corpuscular Hemoglobin Concent 33.8% (32.0-37.0) Red Cell Distribution Width 13.6% (12.3-15.4) Platelet Count 588bil/L (150-400) Neutrophils (%) (Auto) 43% (40-74) Lymphocytes (%) (Auto) 37% (14-46) Monocytes (%) (Auto) 9% (4-12) Eosinophils (%) (Auto) 3% (0-5) Basophils (%) (Auto) 0% (0-3) Band Neutrophils % 2% (1-5) Metamyelocytes % 2% (0-0) Myelocytes % 4% (0-0) Sodium Level 140mEq/L (134-144) Potassium Level 5.1mEq/L (3.5-5.2) Chloride Level 103mEq/L (97-108) Carbon Dioxide Level 25mmol/L (18-29) Blood Urea Nitrogen 10mg/dL (6-24) Creatinine 0.64mg/dL (0.76-1.27) Estimat Glomerular Filtration Rate 141mL/min (>59) Glucose Level 100mg/dL (60-99) Calcium Level 9.1mg/dL (8.5-10.1) Phosphorus Level 3.6mg/dL (2.5-4.9) Magnesium Level 2.4mg/dL (1.6-2.6) Total Bilirubin 0.3mg/dL (0.0-1.2) Aspartate Amino Transf (AST/SGOT) 64U/L (0-50) Alanine Aminotransferase (ALT/SGPT) 109U/L (0-44) Alkaline Phosphatase 145U/L (25-150) Total Protein 6.8g/dL (6.4-8.4) Albumin 3.5g/dL (3.4-5.0) Discharge Medications As needed Eszopiclone (Lunesta) 2 Mg Tablet 2 MG PO HS PRN PRN Insomnia (Reported) Fluticasone Propionate (Flonase Allergy Relief) 50 Mcg/Actuation [place].susp 9.9 ML NS DAILY PRN PRN PRN (Reported) Additional med instructions Cefazolin 2g every 8hours will be continued via PICC line Followup Plan Disposition: home Follow-up plan Please follow up with your doctor in 2weeks Discharge Diet: No restrictions Discharge Activity: No restrictions Patient Instructions You were hospitalized with blood stream infections. Multiple studies in the hospital didn't show any evidence of source of infection. You were treated appropriately with antibiotics, responded well. Please note that you are scheduled to have IV antiobiotics as scheduled, please follow the schedule to finish the course. continuous infusion through February 17. You will need weekly blood draws and follow up with in the clinic on 02/02 Follow-up Provider: Momo Hernandez MD Follow-up with PCP in: 2 weeks Time spent 65min Judie Abernathy MD January 24, 2017 14:17
--- NOTE | 2017-01-24 14:52 | NUR ---
Pt off unit Pt to PICC suite via wheelchair at 1450 hrs.
--- NOTE | 2017-01-24 15:43 | DRSVH ---
PROCEDURE: X-RAY PICC LINE PLACEMENT BY NURSE ([id number]) INDICATIONS: abx COMPARISON: None. FINDINGS: PICC was placed by the intravenous therapy team from the right side. Fluoroscopic spot fi lm demonstrates tip projected over the lower SVC. IMPRESSION: Tip of PICC projected over the lower SVC . Dictated by: Abhijit BUNN Interpreted: Jose Armando Alatorre MD on 01/24/2017 at 15:42 Transcribed by: ZAIN on 01/24/2017 at 15:42 Approved by: Jose Armando Alatorre M.D. on 01/24/2017 at 16:09
[2017-01-24 16:56] VITALS: BP 111/73; PULSE 64; RESP 18; O2SAT 99
--- NOTE | 2017-01-24 17:12 | NUR ---
Discharge Pt discharged to home with spouse via private vehicle at 1705 hrs. PIV removed intact. VSS. Pain controlled. PICC line inserted this p.m. All personal possessions sent with pt. Discharge and follow up instructions given to pt, and he expressed understanding.
== END 2017-01-24 17:05 | disposition home or self-care (01) | DRG 872 ==
LOC: OSC 17:40
PROVIDERS: ADMIT Internal Medicine; ATTEND Internal Medicine
PROC: B246ZZ4 Ultrasonography of Right and Left Heart, Transesophageal (ICD-10-PCS; principal; 2017-01-19)
DX: R78.81 Bacteremia (principal); Z87.891 Personal history of nicotine dependence; K59.00 Constipation, unspecified; B95.61 Methicillin susceptible Staphylococcus aureus infection as the cause of diseases classified elsewhere; R10.9 Unspecified abdominal pain; D47.3 Essential (hemorrhagic) thrombocythemia; R74.0 Nonspecific elevation of levels of transaminase and lactic acid dehydrogenase [LDH]